=== PATIENT | male | born 1950 | race Caucasian/White ===

== ENCOUNTER 2019-09-19 07:28 | Outpatient (CLI) | payer MEDICARE, SELFPAY ==
[2019-09-19 08:02] LABS: Alanine Aminotransferase 25 U/L (4-50); Albumin Level 4.3 g/dL (3.5-5.1); Alkaline Phosphatase 57 U/L (38-126); Aspartate Amino Transferase 27 U/L (17-59); Bilirubin,Total 0.8 mg/dL (0.2-1.3); Blood Urea Nitrogen 13 mg/dL (9-20); Carbon Dioxide 29 mmol/L (22-30); Chloride 104 mmol/L (98-107); Cholesterol 123 mg/dL (0-200); Estimated Glomerular Filt Rate > 60; Glucose 137 mg/dL (75-110); HDL Direct 37 mg/dL; Potassium 4.2 mmol/L (3.4-5.0); Sodium 137 mmol/L (137-145); Triglycerides 115 mg/dL (<150)
[2019-09-19 08:03] LABS: Hemoglobin A1C 6.2 % (<5.7)
[2019-09-19 08:14] LABS: LDL Cholesterol Direct 65 mg/dL
== END 2019-09-19 07:29 | disposition home or self-care (01) ==
PROVIDERS: Visit Provider Physician Assistant
DX: E11.9 Type 2 diabetes mellitus without complications (principal); R03.0 Elevated blood-pressure reading, without diagnosis of hypertension
CPT/HCPCS: 36415; 80053; 80061; 83036

== ENCOUNTER 2019-10-02 10:05 | Outpatient (CLI) | payer MEDICARE, SELFPAY ==
--- NOTE | 2019-10-02 10:11 | EST_ITS ---
Patient Info Name: Kush Chaparro Age: 69 years : 1950 Gender: Male Ht: 64 in Wt: 205 lbs BSA: 2.09 m2 Exam Date: 10/02/2019 10:30 AM Exam Location: [facility] Stress Patient Status: Outpatient Admit Date: 10/02/2019 Staff Ordering Physician: Elizabeth Barboza PA-C Attending Provider: Elizabeth Barboza PA-C Exercise Technologist: Liz Lackey RDCS Exercise Physician: Andrea Peng DO Exam Type: CA stress test treadmill Study Info Indications R07.9 - Chest pain, unspecified A treadmill exercise stress test was performed. Summary 1. 1. Negative Peterson exercise stress test for ischemic ST changes by ECG criteria. However, he achieved only 81% MPHR for age group which reduces sensitivity of the test. 2. 2. Reduced functional capacity, achieving 7 METs of workload. 3. 3. Hypertensive response to exercise. 4. 4. Appropriate HR recovery at 1 minute post exercise. 5. 5. No imaging with stress testing. 6. 6. Patient informed of the above results. Protocol: Peterson Stress ECG Details Stage: REST Duration (min): 0 min : 46 sec Speed (mph): 0.0 Grade (%): 0 HR (bpm): 57 SBP (mmHg): 135 DBP (mmHg): 71 METS: --- Stage: REST Duration (min): 7 min : 12 sec Speed (mph): 0.0 Grade (%): 0 HR (bpm): 67 SBP (mmHg): 135 DBP (mmHg): 71 METS: --- Stage: STAGE 1 Duration (min): 1 min : 0 sec Speed (mph): 1.7 Grade (%): 10 HR (bpm): 85 SBP (mmHg): 135 DBP (mmHg): 71 METS: --- Stage: STAGE 1 Duration (min): 2 min : 0 sec Speed (mph): 1.7 Grade (%): 10 HR (bpm): 94 SBP (mmHg): 135 DBP (mmHg): 71 METS: --- Stage: STAGE 1 Duration (min): 3 min : 0 sec Speed (mph): 1.7 Grade (%): 10 HR (bpm): 102 SBP (mmHg): 171 DBP (mmHg): 74 METS: --- Stage: STAGE 2 Duration (min): 1 min : 0 sec Speed (mph): 2.5 Grade (%): 12 HR (bpm): 109 SBP (mmHg): 171 DBP (mmHg): 74 METS: --- Stage: STAGE 2 Duration (min): 2 min : 0 sec Speed (mph): 2.5 Grade (%): 12 HR (bpm): 121 SBP (mmHg): 205 DBP (mmHg): 92 METS: --- Stage: STAGE 2 Duration (min): 3 min : 0 sec Speed (mph): 2.5 Grade (%): 12 HR (bpm): 118 SBP (mmHg): 205 DBP (mmHg): 92 METS: --- Stage: STAGE 3 Duration (min): 0 min : 11 sec Speed (mph): 3.4 Grade (%): 14 HR (bpm): 120 SBP (mmHg): 205 DBP (mmHg): 92 METS: --- Stage: RECOVERY Duration (min): 0 min : 48 sec Speed (mph): 0.0 Grade (%): 0 HR (bpm): 106 SBP (mmHg): 214 DBP (mmHg): 88 METS: --- Stage: RECOVERY Duration (min): 1 min : 48 sec Speed (mph): 0.0 Grade (%): 0 HR (bpm): 82 SBP (mmHg): 214 DBP (mmHg): 88 METS: --- Stage: RECOVERY Duration (min): 2 min : 48 sec Speed (mph): 0.0 Grade (%): 0 HR (bpm): 78 SBP (mmHg): 214 DBP (mmHg): 88 METS: ---
== END 2019-10-02 10:06 | disposition home or self-care (01) ==
LOC: ANHCARD 10:07
PROVIDERS: Visit Provider Physician Assistant
DX: R07.89 Other chest pain (principal); E66.9 Obesity, unspecified; E11.9 Type 2 diabetes mellitus without complications
CPT/HCPCS: 93017

== ENCOUNTER 2020-01-30 10:09 | Outpatient (CLI) | payer MEDICARE, SELFPAY ==
[2020-01-30 10:48] LABS: Hemoglobin A1C 6.1 % (<5.7)
[2020-01-30 10:51] LABS: Alanine Aminotransferase 38 U/L (4-50); Albumin Level 4.5 g/dL (3.5-5.1); Alkaline Phosphatase 53 U/L (38-126); Anion Gap 6 mmol/L (8-16); Aspartate Amino Transferase 36 U/L (17-59); Bilirubin,Total 0.7 mg/dL (0.2-1.3); Blood Urea Nitrogen 16 mg/dL (9-20); Calcium 9.2 mg/dL (8.4-10.2); Carbon Dioxide 34 mmol/L (22-30); Chloride 100 mmol/L (98-107); Estimated Glomerular Filt Rate > 60; Glucose 170 mg/dL (75-110); Sodium 140 mmol/L (137-145)
== END 2020-01-30 10:10 | disposition home or self-care (01) ==
PROVIDERS: Visit Provider Physician Assistant
DX: E11.9 Type 2 diabetes mellitus without complications (principal); I10 Essential (primary) hypertension
CPT/HCPCS: 36415; 80053; 83036

== ENCOUNTER 2020-04-07 09:46 | Outpatient (CLI) | payer MEDICARE, SELFPAY ==
--- NOTE | ~2020-04-07 | US_ITS ---
US_ABDRLQ_US INDICATION: Fatty liver disease. PROCEDURE: Realtime right upper abdominal ultrasound. COMPARISON: No prior studies for comparison. FINDINGS: The pancreas is normal without focal mass or pancreatic ductal dilation. Liver echotexture is diffusely increased, consistent with fatty infiltration. Gallbladder is surgically absent. The gallbladder is normal without stones, gallbladder wall thickening or pericholecystic fluid. Comm on bile duct measures 5 mm. IMPRESSION: 1: Hepatic steatosis. Reviewed, dictated and finalized at location A. PROFIT JOB TITLES IMPRESSION: 1: Hepatic steatosis.
[2020-04-07 10:41] LABS: Basophils Absolute Auto 0.1 K/mm3 (0.0-0.1); Basophils Percent Auto 0.6 % (0.2-1.2); Eosinophils Absolute Auto 0.2 K/mm3 (0-0.3); Eosinophils Percent Auto 2.2 % (0-4.4); Hematocrit 46.7 % (42.0-52.0); Hemoglobin 16.1 g/dL (14.0-18.0); Immature Granulocyte Absolute 0.07 K/mm3 (0.00-0.031); Immature Granulocyte Percent A 0.7 % (0-0.5); Immature Platelet Fraction Pct 6.8 % (0.9-11.2); Lymphocytes Absolute Auto 2.16 K/mm3 (0.9-3.2); Lymphocytes Percent Auto 22.3 % (18.3-44.2); Mean Corpuscular HGB Conc 34.5 g/dl (32-36); Mean Corpuscular Hemoglobin 31.8 pg (26-34); Mean Corpuscular Volume 92.3 fl (80-100); Mean Platelet Volume 11.4 fl (7.4-10.4); Monocytes Absolute Auto 0.9 K/mm3 (0.1-0.6); Monocytes Percent Auto 8.8 % (2.6-8.5); Neutrophils Absolute Auto 6.3 K/mm3 (1.3-6.7); Neutrophils Percent Auto 65.4 % (45.5-73.1); Platelet Count Result 145 k/mm3 (150-375); Red Blood Count 5.06 M/mm3 (4.6-6.20); Red Cell Distribution Width 13.1 % (11.5-14.5); White Blood Count 9.7 K/mm3 (4.5-10.0)
[2020-04-07 10:54] LABS: Prothrombin Time 14.1 Seconds (11.1-14.7)
[2020-04-07 10:56] LABS: Alanine Aminotransferase 26 U/L (4-50); Albumin Level 4.2 g/dL (3.5-5.1); Alkaline Phosphatase 54 U/L (38-126); Anion Gap 7 mmol/L (8-16); Aspartate Amino Transferase 24 U/L (17-59); Bilirubin,Total 0.7 mg/dL (0.2-1.3); Blood Urea Nitrogen 20 mg/dL (9-20); Calcium 9.4 mg/dL (8.4-10.2); Carbon Dioxide 29 mmol/L (22-30); Chloride 103 mmol/L (98-107); Estimated Glomerular Filt Rate > 60; Glucose 144 mg/dL (75-110); Potassium 4.1 mmol/L (3.4-5.0); Sodium 139 mmol/L (137-145)
== END 2020-04-07 09:47 | disposition home or self-care (01) ==
LOC: ANHIMG 09:52
DX: K76.0 Fatty (change of) liver, not elsewhere classified (principal)
CPT/HCPCS: 36415; 76705; 80053; 85025; 85055; 85610

== ENCOUNTER → 2020-09-17 03:43 | Outpatient (CLI) | payer MEDICARE, SELFPAY ==
[2020-09-17 18:46] LABS: SARS-CoV-2 RNA PCR Negative
== END ==
PROVIDERS: PCP Family Medicine; Visit Provider Internal Medicine Gastroenterology
DX: Z01.812 Encounter for preprocedural laboratory examination (principal); Z20.822 Contact with and (suspected) exposure to COVID-19
CPT/HCPCS: C9803; U0003; U0005

== ENCOUNTER 2020-11-23 01:18 | Day surgery (SDC) | payer MEDICARE, SELFPAY ==
[2020-09-14 14:49] VITALS: BMI 34.0
[2020-11-15 15:43] VITALS: BMI 34.0
--- NOTE | 2020-11-22 12:03 | WPDANESEPPF ---
Anes - Initial Pre Proc Eval Procedure: Operation Date: 11/23/20 08:00 Proposed Procedures p Colonoscopy - Vin Broussard MD Date/Time: 11/22/20 12:03 Surgeon: Vin Broussard MD Pre Op Diagnosis: diarrhea Patient Data Age: 70 Gender: M Height: 1.63 m Weight: 90 kg Allergies Allergy/AdvReac Type Severity Reaction Status Date / Time adhesive Allergy Unknown blistering Verified 08/24/20 14:29 Home Medications Medication Instructions Recorded Confirmed Type aspirin 81 mg tablet,delayed 81 mg PO DAILY 02/05/19 11/23/20 History release cyclobenzaprine 5 mg tablet 5 mg PO DAILY PRN tablet 02/05/19 11/23/20 History fluticasone propionate 50 1 spray NASAL DAILY PRN 02/05/19 11/23/20 History mcg/actuation nasal spray,suspension sildenafil 100 mg tablet 100 mg PO DAILY PRN #6 tablet 03/18/19 11/15/20 Rx blood sugar diagnostic #100 ea 01/20/20 11/15/20 Rx lancets #100 ea 01/20/20 11/15/20 Rx Adult Probiotic 1 dose PO DAILY PRN 09/14/20 11/23/20 History alprazolam 0.25 mg PO DAILY PRN 09/14/20 11/23/20 History diphenhydramine HCl [Benadryl] 25 mg PO HS PRN 09/14/20 11/23/20 History modafinil 100 mg PO QAM PRN 09/14/20 11/15/20 History trazodone 25 mg PO .qhs 09/14/20 11/15/20 History hydrocodone 7.5 mg-ibuprofen 200 1 tablet PO Q12H PRN #30 tablet 09/15/20 11/23/20 Rx mg tablet losartan 50 mg PO DAILY 11/15/20 11/23/20 History Patient hx anesthesia problems: none Family hx anesthesia problems: none PMFSH Past Medical History Medical History (Updated 11/22/20 @ 12:05 by Barrett Terry DO) Anxiety BPH (benign prostatic hyperplasia) Chronic bilateral low back pain Chronic, continuous use of opioids Diabetes Elevated BP without diagnosis of hypertension Fatty liver History of hepatitis C Hyperlipidemia Hypertension COCO (obstructive sleep apnea) URI (upper respiratory infection) Surgical History Surgical History H/O sinus surgery H/O uvulectomy S/P cholecystectomy Family History Family History Sibling Diabetes mellitus Hypertension Mother Diabetes mellitus Hypertension Heart disease Mother Acute myocardial infarction, Onset Age: 80 Patient's mother is Diabetes mellitus Hypertension Family history of cardiovascular disease Father Family history of kidney disease, Onset Age: 75 Patient's father is Sibling Diabetes mellitus Hypertension Other Depression Family history of obesity Social History Social History Smoking status: Never smoker Second hand tobacco smoke exposure: No Alcohol intake: current Drinks per week: 1 Substance use: current Substance use type: marijuana Other substance usage details: OCC. Living arrangements: alone Gender identity (if verbalized by the patient): Male Spiritual care concerns: No Anes - Eval Final PreProcedure Day of Procedure 11/22/20 12:03 Patient weight: obese Heart: regular rate and rhythm Lungs: clear to auscultation and normal air movement Airway: Mallampati scale class II Neurological: alert and oriented Last oral intake: >/= 8 hours ASA classification: III Emergent: no Anesthetic plan: proceed Anesthesia type and monitoring: general GIVS and standard monitoring Informed Consent: The patient's anesthetic plan and its attendant risks and benefits were discussed with the patient/family/POA. Questions were solicited and answers provided to the satisfaction of the patient/family/POA.
[2020-11-23 06:39] VITALS: BP 157/79; PULSE 73; RESP 16; TEMP 36.1; O2SAT 98
[2020-11-23] MEDS: LACTATED RINGERS 1,000 ML 150 ML IV CONT (07:12)
--- NOTE | 2020-11-23 07:18 | WPDGICN ---
Assessment and Plan Assessment and plan (1) History of colon polyps: Code(s): Z86.010 - Personal history of colonic polyps Status: Acute Assessment and Plan: Patient has a prior history of colon polyps. Plan is for surveillance colonoscopy now and should be considered 5 year intervals in the future. (2) Diabetes: Code(s): E11.9 - Type 2 diabetes mellitus without complications Status: Acute Assessment and Plan: Patient complains of frequent loose stools in the morning potentially this could be related diabetic diarrhea. Fiber supplementation often helps this a brief trial will be recommended. (3) S/P cholecystectomy: Code(s): Z90.49 - Acquired absence of other specified parts of digestive tract Status: Acute Assessment and Plan: Patient has a prior history of cholecystectomy. Potentially this could contribute to loose stools. A brief trial of Questran can be considered if fiber supplementation fails to improve his diarrhea. (4) Family history of colonic polyps: Code(s): Z83.71 - Family history of colonic polyps Status: Acute GI Consult Note Consult date/time: 11/23/20 07:18 HPI: Kush Chaparro . is a 70 year old male Presents for screening colonoscopy. Patient has a prior history of colon polyps. Family history is also significant for colon polyps. Patient most recent colonoscopy was 2014. Over the last 1 year patient has noticed frequent stools in the morning. Occasional loose stools in the morning. For this reason the request follow-up colonoscopy at this time. Patient denies any blood in his stools. He denies abdominal pain. He has had no bleeding. Does report prior history cholecystectomy he has been treated for diabetes and has had hepatitis C treatment for cure. Review of Systems Review of Systems: All systems reviewed & are unremarkable except as noted in HPI and below PMFSH Past Medical History Medical History (Updated 11/23/20 @ 07:21 by Vin Broussard MD) Anxiety BPH (benign prostatic hyperplasia) Chronic bilateral low back pain Chronic, continuous use of opioids Diabetes Elevated BP without diagnosis of hypertension Fatty liver History of hepatitis C Hyperlipidemia Hypertension COCO (obstructive sleep apnea) URI (upper respiratory infection) Surgical History Surgical History (Updated 11/23/20 @ 07:21 by Vin Broussard MD) H/O sinus surgery H/O uvulectomy S/P cholecystectomy Family History Family History Sibling Diabetes mellitus Hypertension Mother Diabetes mellitus Hypertension Heart disease Mother Acute myocardial infarction, Onset Age: 80 Patient's mother is Diabetes mellitus Hypertension Family history of cardiovascular disease Father Family history of kidney disease, Onset Age: 75 Patient's father is Sibling Diabetes mellitus Hypertension Other Depression Family history of obesity Social History Social History Smoking status: Never smoker Second hand tobacco smoke exposure: No Alcohol intake: current Drinks per week: 1 Substance use: current Substance use type: marijuana Other substance usage details: OCC. Living arrangements: alone Gender identity (if verbalized by the patient): Male Spiritual care concerns: No Meds Home Medications and Allergies Home Medications Medication Instructions Recorded Confirmed Type aspirin 81 mg tablet,delayed 81 mg PO DAILY 02/05/19 11/23/20 History release cyclobenzaprine 5 mg tablet 5 mg PO DAILY PRN tablet 02/05/19 11/23/20 History fluticasone propionate 50 1 spray NASAL DAILY PRN 02/05/19 11/23/20 History mcg/actuation nasal spray,suspension sildenafil 100 mg tablet 100 mg PO DAILY PRN #6 tablet 03/18/19 11/15/20 Rx blood sugar diagnostic #100 ea 01/20/20 0
[2020-11-23 08:28] VITALS: BP 135/80; PULSE 65; RESP 24; O2SAT 97
[2020-11-23 08:38] VITALS: BP 135/81; PULSE 62; RESP 20; O2SAT 98
[2020-11-23 08:48] VITALS: BP 141/96; PULSE 56; RESP 17; O2SAT 98
== END 2020-11-23 09:03 | disposition home or self-care (01) ==
PROVIDERS: PCP Family Medicine; Visit Provider Internal Medicine Gastroenterology
PROC: 0DJD8ZZ Inspection of Lower Intestinal Tract, Via Natural or Artificial Opening Endoscopic (ICD-10-PCS; CPT 45378; principal; 2020-11-23 08:00)
DX: R19.7 Diarrhea, unspecified (principal); K64.8 Other hemorrhoids; K57.30 Diverticulosis of large intestine without perforation or abscess without bleeding; K63.5 Polyp of colon; D12.5 Benign neoplasm of sigmoid colon; E11.9 Type 2 diabetes mellitus without complications; Z90.49 Acquired absence of other specified parts of digestive tract; Z83.71 Family history of colonic polyps; F41.9 Anxiety disorder, unspecified; G47.33 Obstructive sleep apnea (adult) (pediatric); K76.0 Fatty (change of) liver, not elsewhere classified; E78.5 Hyperlipidemia, unspecified; Z86.19 Personal history of other infectious and parasitic diseases; F12.90 Cannabis use, unspecified, uncomplicated; Z79.82 Long term (current) use of aspirin; R19.5 Other fecal abnormalities; E66.9 Obesity, unspecified; Z68.34 Body mass index [BMI] 34.0-34.9, adult
CPT/HCPCS: 45385; 88305; J2001; J2704; J7120

== ENCOUNTER 2021-02-02 13:21 | Outpatient (CLI) | payer MEDICARE, SELFPAY ==
--- NOTE | ~2021-02-02 | CT_ITS ---
EXAMINATION: CT brain wo con EXAM DATE: 02/02/2021 13:50 INDICATION: R42 - Dizziness and giddiness. TECHNIQUE: Spiral CT of the head was performed without contrast. Axial, coronal and sagittal images were reviewed. The dose-length product (DLP) for this examination was 605.33 mGy-cm. The exposure w as tailored according to patient size, and iterative reconstruction (ASIR) was used as additional dos e reduction technique. There is no prior study for comparison. FINDINGS: There is no acute intraparenchymal hemorrhage. No evidence of intraparenchymal brain mass lesion. No evidence of acute infarction. There is no mass effect or midline shift. The ventricles are normal in size. There are no extra-axial collections. There are no acute calvarial fractures. T he orbits are unremarkable. Soft tissue is unremarkable. The visualized sinuses and mastoid air zac ls are well aerated. IMPRESSION: 1. Unremarkable head CT examination. Reviewed, dictated and finalized at location A.
== END 2021-02-02 13:22 | disposition home or self-care (01) ==
LOC: ANHIMG 13:27
PROVIDERS: PCP Family Medicine; Visit Provider Physician Assistant
DX: R42 Dizziness and giddiness (principal)
CPT/HCPCS: 70450

== ENCOUNTER 2021-02-14 12:35 | Outpatient (CLI) | payer MEDICARE, SELFPAY ==
--- NOTE | ~2021-02-14 | US_ITS ---
EXAMINATION: US carotid duplex BI DATE: 02/14/2021 13:08 INDICATION: Dizziness and giddiness. TECHNIQUE: Grayscale, color Doppler, and pulsed Doppler images of the cervical carotid arteries were obtained. The degree of vessel stenosis is placed in one of the following categories: normal, <50%, 5 0-69%, >=70% but less than near-occlusion, near-occlusion, or total occlusion. Note that percent sten osis relative to normal distal artery lumen diameter is indirectly measured from velocity measurement s as described by Tiago, et al. Radiology 2003; 229:340-346. COMPARISON: None. FINDINGS: RIGHT: The right common carotid artery (CCA) peak systolic velocity (PSV) is 147 cm/s. The right internal ca rotid artery (ICA) PSV is 121 cm/s. The right ICA end-diastolic velocity (EDV) is 37 cm/s. The right ICA/CCA PSV ratio is 0.8. Grayscale and color Doppler images yield an estimate of <50% diameter reduc tion from plaque in the ICA. There is antegrade flow in the right vertebral artery. LEFT: The left CCA PSV is 133 cm/s. The left ICA PSV is 97 cm/s. The left ICA EDV is 25 cm/s. The left ICA/ CCA PSV ratio is 0.7. Grayscale and color Doppler images yield an estimate of <50% diameter reduction from plaque in the ICA. There is antegrade flow in the left vertebral artery. IMPRESSION: 1. <50% stenosis in the right internal carotid artery. 2. <50% stenosis in the left internal carotid artery. Reviewed, dictated and finalized at location A. OILER
== END 2021-02-14 12:36 | disposition home or self-care (01) ==
LOC: ANHIMG 12:39
PROVIDERS: PCP Family Medicine; Visit Provider Physician Assistant
DX: R42 Dizziness and giddiness (principal); I65.23 Occlusion and stenosis of bilateral carotid arteries
CPT/HCPCS: 93880

== ENCOUNTER 2021-03-01 15:14 | Outpatient (CLI) | payer MEDICARE, SELFPAY ==
[2021-03-01 15:53] LABS: Alanine Aminotransferase 34 U/L (4-50); Albumin Level 4.5 g/dL (3.5-5.1); Alkaline Phosphatase 56 U/L (38-126); Anion Gap 10 mmol/L (8-16); Aspartate Amino Transferase 32 U/L (17-59); Bilirubin,Total 0.7 mg/dL (0.2-1.3); Blood Urea Nitrogen 14 mg/dL (9-20); Calcium 9.2 mg/dL (8.4-10.2); Carbon Dioxide 25 mmol/L (22-30); Chloride 104 mmol/L (98-107); Estimated Glomerular Filt Rate > 60; Glucose 157 mg/dL (65-110); Potassium 4.6 mmol/L (3.4-5.0); Sodium 139 mmol/L (137-145)
[2021-03-01 16:42] LABS: Hemoglobin A1C 6.8 % (<5.7)
== END 2021-03-01 15:15 | disposition home or self-care (01) ==
LOC: ANHLAB 15:19
PROVIDERS: PCP Family Medicine; Visit Provider Family Medicine
DX: E11.9 Type 2 diabetes mellitus without complications (principal)
CPT/HCPCS: 36415; 80053; 83036

== ENCOUNTER 2021-03-15 08:03 | Outpatient (CLI) | payer MEDICARE, SELFPAY ==
--- NOTE | ~2021-03-15 | US_ITS ---
EXAMINATION: US abdomen limited DATE: 03/15/2021 08:48 INDICATION: Nonalcoholic fatty liver disease. TECHNIQUE: Multiple grayscale and Doppler ultrasound images of the abdomen were obtained. COMPARISON: Ultrasound 04/07/2020, CT abdomen and pelvis 03/17/2015 FINDINGS: The visualized portions of the head of the pancreas are normal. There is diffuse hepatic st eatosis. No liver surface nodularity. There is normal flow in main portal vein. The gallbladder is ab sent. The common duct is normal and measures 4 mm. IMPRESSION: 1. Diffuse hepatic steatosis. Reviewed, dictated and finalized at location A. OAT ENGINEER
[2021-03-15 10:22] LABS: Alanine Aminotransferase 34 U/L (4-50); Albumin Level 4.7 g/dL (3.5-5.1); Alkaline Phosphatase 64 U/L (38-126); Anion Gap 9 mmol/L (8-16); Aspartate Amino Transferase 25 U/L (17-59); Bilirubin,Total 0.8 mg/dL (0.2-1.3); Blood Urea Nitrogen 25 mg/dL (9-20); Calcium 9.6 mg/dL (8.4-10.2); Carbon Dioxide 30 mmol/L (22-30); Chloride 97 mmol/L (98-107); Estimated Glomerular Filt Rate > 60; Glucose 261 mg/dL (65-110); Potassium 4.6 mmol/L (3.4-5.0); Sodium 136 mmol/L (137-145)
[2021-03-15 10:24] LABS: INR 1.1; Prothrombin Time 13.8 Seconds (11.1-14.7)
[2021-03-15 10:32] LABS: Basophils Absolute Auto 0.1 K/mm3 (0.0-0.1); Basophils Percent Auto 1.1 % (0.2-1.2); Eosinophils Absolute Auto 0.2 K/mm3 (0-0.3); Eosinophils Percent Auto 1.9 % (0-4.4); Hematocrit 47.6 % (42.0-52.0); Hemoglobin 16.5 g/dL (14.0-18.0); Immature Granulocyte Absolute 0.29 K/mm3 (0.00-0.031); Immature Granulocyte Percent A 2.5 % (0-0.5); Immature Platelet Fraction Pct 7.8 % (0.9-11.2); Lymphocytes Absolute Auto 2.02 K/mm3 (0.9-3.2); Lymphocytes Percent Auto 17.3 % (18.3-44.2); Mean Corpuscular HGB Conc 34.7 g/dl (32-36); Mean Corpuscular Hemoglobin 32.4 pg (26-34); Mean Corpuscular Volume 93.5 fl (80-100); Mean Platelet Volume 11.4 fl (7.4-10.4); Monocytes Percent Auto 8.4 % (2.6-8.5); Neutrophils Percent Auto 68.8 % (45.5-73.1); Platelet Count Result 138 k/mm3 (150-375); Red Blood Count 5.09 M/mm3 (4.6-6.20); Red Cell Distribution Width 12.5 % (11.5-14.5); White Blood Count 11.7 K/mm3 (4.5-10.0)
== END 2021-03-15 08:04 | disposition home or self-care (01) ==
PROVIDERS: PCP Family Medicine
DX: K76.0 Fatty (change of) liver, not elsewhere classified (principal)
CPT/HCPCS: 36415; 76705; 80053; 85025; 85055; 85610

== ENCOUNTER 2021-06-11 12:46 | Outpatient (CLI) | payer MEDICARE, SELFPAY ==
[2021-06-11 13:39] LABS: Alanine Aminotransferase 34 U/L (4-50); Albumin Level 4.4 g/dL (3.5-5.1); Alkaline Phosphatase 58 U/L (38-126); Anion Gap 8 mmol/L (8-16); Aspartate Amino Transferase 30 U/L (17-59); Bilirubin,Total 0.8 mg/dL (0.2-1.3); Blood Urea Nitrogen 15 mg/dL (9-20); Calcium 8.9 mg/dL (8.4-10.2); Carbon Dioxide 27 mmol/L (22-30); Chloride 103 mmol/L (98-107); Estimated Glomerular Filt Rate > 60; Glucose 183 mg/dL (65-110); Potassium 4.2 mmol/L (3.4-5.0); Sodium 138 mmol/L (137-145)
[2021-06-11 14:45] LABS: Folic Acid 6.8 ng/mL (2.76->20); Vitamin B12 > 1000.0 pg/mL (239-931)
[2021-06-11 15:43] LABS: Hemoglobin A1C 6.8 % (<5.7)
== END 2021-06-11 12:47 | disposition home or self-care (01) ==
PROVIDERS: PCP Family Medicine; Visit Provider Physician Assistant
DX: E11.9 Type 2 diabetes mellitus without complications (principal); I10 Essential (primary) hypertension; K76.0 Fatty (change of) liver, not elsewhere classified; R20.0 Anesthesia of skin; F41.9 Anxiety disorder, unspecified
CPT/HCPCS: 36415; 80053; 82607; 82746; 83036; 84443

== ENCOUNTER 2021-09-13 10:04 | Outpatient (CLI) | payer MEDICARE, SELFPAY ==
[2021-09-13 10:39] LABS: Basophils Absolute Auto 0.1 K/mm3 (0.0-0.1); Eosinophils Absolute Auto 0.2 K/mm3 (0-0.3); Eosinophils Percent Auto 3.1 % (0-4.4); Hematocrit 46.9 % (42.0-52.0); Hemoglobin 16.2 g/dL (14.0-18.0); Immature Granulocyte Absolute 0.05 K/mm3 (0.00-0.031); Immature Granulocyte Percent A 0.7 % (0-0.5); Immature Platelet Fraction Pct 6.2 % (0.9-11.2); Lymphocytes Absolute Auto 1.85 K/mm3 (0.9-3.2); Lymphocytes Percent Auto 25.2 % (18.3-44.2); Mean Corpuscular HGB Conc 34.5 g/dl (32-36); Mean Corpuscular Hemoglobin 31.5 pg (26-34); Mean Corpuscular Volume 91.2 fl (80-100); Mean Platelet Volume 11.2 fl (7.4-10.4); Monocytes Absolute Auto 0.7 K/mm3 (0.1-0.6); Monocytes Percent Auto 9.5 % (2.6-8.5); Neutrophils Absolute Auto 4.4 K/mm3 (1.3-6.7); Neutrophils Percent Auto 60.5 % (45.5-73.1); Platelet Count Result 130 k/mm3 (150-375); Red Blood Count 5.14 M/mm3 (4.6-6.20); White Blood Count 7.3 K/mm3 (4.5-10.0)
[2021-09-13 10:52] LABS: Alanine Aminotransferase 37 U/L (6-50); Albumin Level 4.5 g/dL (3.5-5.1); Alkaline Phosphatase 55 U/L (38-126); Anion Gap 7 mmol/L (8-16); Aspartate Amino Transferase 29 U/L (17-59); Blood Urea Nitrogen 13 mg/dL (9-20); Calcium 9.2 mg/dL (8.4-10.2); Carbon Dioxide 26 mmol/L (22-30); Chloride 106 mmol/L (98-107); Estimated Glomerular Filt Rate > 60; Glucose 157 mg/dL (65-110); Potassium 4.1 mmol/L (3.4-5.0); Sodium 139 mmol/L (137-145)
[2021-09-13 10:53] LABS: Hemoglobin A1C 6.8 % (<5.7)
[2021-09-13 12:18] LABS: Folic Acid 7.9 ng/mL (2.76->20); Vitamin B12 > 1000.0 pg/mL (239-931)
== END 2021-09-13 10:05 | disposition home or self-care (01) ==
PROVIDERS: PCP Family Medicine; Visit Provider Physician Assistant
DX: K76.0 Fatty (change of) liver, not elsewhere classified (principal); I10 Essential (primary) hypertension; E11.9 Type 2 diabetes mellitus without complications; R20.0 Anesthesia of skin; R20.2 Paresthesia of skin
CPT/HCPCS: 36415; 80053; 82607; 82746; 83036; 84443; 85025; 85055

== ENCOUNTER 2022-01-25 09:56 | Outpatient (CLI) | payer MEDICARE, SELFPAY ==
[2022-01-25 10:20] LABS: Alanine Aminotransferase 46 U/L (6-50); Albumin Level 4.3 g/dL (3.5-5.1); Alkaline Phosphatase 51 U/L (38-126); Anion Gap 11 mmol/L (8-16); Aspartate Amino Transferase 34 U/L (17-59); Bilirubin,Total 0.7 mg/dL (0.2-1.3); Blood Urea Nitrogen 12 mg/dL (9-20); Calcium 8.5 mg/dL (8.4-10.2); Carbon Dioxide 25 mmol/L (22-30); Chloride 104 mmol/L (98-107); Estimated Glomerular Filt Rate 60; Glucose 140 mg/dL (65-110); Potassium 4.1 mmol/L (3.4-5.0); Sodium 140 mmol/L (137-145)
[2022-01-25 10:26] LABS: Hemoglobin A1C 7.1 % (<5.7)
== END 2022-01-25 09:57 | disposition home or self-care (01) ==
LOC: ANHLAB 09:58
PROVIDERS: PCP Family Medicine; Visit Provider Family Medicine
DX: E11.9 Type 2 diabetes mellitus without complications (principal)
CPT/HCPCS: 36415; 80053; 83036

== ENCOUNTER 2022-02-16 09:13 | Outpatient (CLI) | payer MEDICARE, SELFPAY ==
[2022-02-16 10:32] LABS: Cholesterol 138 mg/dL (0-200); HDL Direct 40 mg/dL; Triglycerides 233 mg/dL (<150)
[2022-02-16 10:42] LABS: LDL Cholesterol Direct 56 mg/dL
== END 2022-02-16 09:14 | disposition home or self-care (01) ==
LOC: ANHLAB 09:14
PROVIDERS: PCP Family Medicine; Visit Provider Internal Medicine Cardiovascular Disease
DX: I25.10 Atherosclerotic heart disease of native coronary artery without angina pectoris (principal)
CPT/HCPCS: 36415; 80061

== ENCOUNTER 2022-05-03 09:05 | Outpatient (CLI) | payer MEDICARE, SELFPAY ==
--- NOTE | ~2022-05-03 | US_ITS ---
EXAMINATION: US abdomen limited DATE: 05/03/2022 12:27 INDICATION: NONALCOHOLIC FATTY LIVER DISEASE TECHNIQUE: Multiple grayscale and Doppler ultrasound images of limited portions of the abdomen were o btained. COMPARISON: None available. FINDINGS: The visualized portions of the pancreas are normal. The liver is enlarged with increased ec hogenicity and normal echotexture. No surface nodularity. Normal hepatopetal flow in the main portal vein. Status post cholecystectomy. The common bile duct measures 4 mm. IMPRESSION: Hepatomegaly. Echogenic liver, most commonly due to steatosis but also can be seen with hepatitis and fibrosis. Reviewed, dictated and finalized at location K. CLEANING MACHINE TENDER IMPRESSION: Hepatomegaly. Echogenic liver, most commonly due to steatosis but also can be s een with hepatitis and fibrosis.
[2022-05-03 11:52] LABS: Appearance Urine Clear (Clear); Bilirubin Urine Negative (Negative); Blood Urine Trace-lysed (Negative); Color Urine Yellow (Yellow); Glucose Urine UA 1+ mg/dL (Negative); Ketones Urine Negative (Negative); Leukocyte Esterase Ur Negative LEU/UL (NEGATIVE); Nitrate Urine Negative (Negative); Protein Urine Trace mg/dL (Negative); Specific Grav Ur >= 1.030 (1.001-1.035); Urobilinogen Urine 0.2 mg/dL (<2.0); pH Urine 5.5 (5.0-9.0)
[2022-05-03 12:00] LABS: Hematocrit 42.9 % (42.0-52.0); Hemoglobin 15.1 g/dL (14.0-18.0); Immature Platelet Fraction Pct 6.8 % (0.9-11.2); Mean Corpuscular HGB Conc 35.2 g/dl (32-36); Mean Corpuscular Hemoglobin 32.3 pg (26-34); Mean Corpuscular Volume 91.7 fl (80-100); Mean Platelet Volume 11.7 fl (7.4-10.4); Platelet Count Result 138 k/mm3 (150-375); Red Blood Count 4.68 M/mm3 (4.6-6.20); Red Cell Distribution Width 13.1 % (11.5-14.5); White Blood Count 7.3 K/mm3 (4.5-10.0)
[2022-05-03 12:22] LABS: Calcium Oxalate Crystals Urine Present /hpf; Mucus Urine Rare /lpf; Squamous Epithelial Cell Urine Rare /hpf (Few); WBC Urine 0-3 /hpf (0-3)
[2022-05-03 13:08] LABS: Alanine Aminotransferase 34 U/L (6-50); Albumin Level 4.4 g/dL (3.5-5.1); Alkaline Phosphatase 52 U/L (38-126); Anion Gap 6 mmol/L (8-16); Aspartate Amino Transferase 35 U/L (17-59); Bilirubin,Total 0.7 mg/dL (0.2-1.3); Blood Urea Nitrogen 15 mg/dL (9-20); Calcium 8.6 mg/dL (8.4-10.2); Carbon Dioxide 26 mmol/L (22-30); Chloride 104 mmol/L (98-107); Cholesterol 78 mg/dL (0-200); Estimated Glomerular Filt Rate 60; Glucose 199 mg/dL (65-110); HDL Direct 43 mg/dL; Potassium 3.9 mmol/L (3.4-5.0); Sodium 136 mmol/L (137-145); Triglycerides 130 mg/dL (<150)
[2022-05-03 13:10] LABS: Add Urine Microscopic? YES
[2022-05-03 13:24] LABS: Microalbumin Urine Random 59.6 mg/L (0-16.7)
[2022-05-03 13:27] LABS: Hemoglobin A1C 6.9 % (<5.7)
[2022-05-03 13:45] LABS: LDL Cholesterol Direct < 30 mg/dL
[2022-05-03 14:39] LABS: Creatinine Urine 225.4 mg/dL; MALB Creatinine Ratio 26.4 mg/g (0-30)
== END 2022-05-03 09:06 | disposition home or self-care (01) ==
PROVIDERS: PCP Family Medicine; Referring Provider Family Medicine
DX: Z00.00 Encounter for general adult medical examination without abnormal findings (principal); K76.0 Fatty (change of) liver, not elsewhere classified; E11.9 Type 2 diabetes mellitus without complications; E78.5 Hyperlipidemia, unspecified; I10 Essential (primary) hypertension; I25.10 Atherosclerotic heart disease of native coronary artery without angina pectoris; R35.1 Nocturia; J06.9 Acute upper respiratory infection, unspecified; F41.9 Anxiety disorder, unspecified; N40.0 Benign prostatic hyperplasia without lower urinary tract symptoms
CPT/HCPCS: 36415; 76705; 80053; 80061; 81001; 82043; 83036; 84153; 84443; 85027; 85055

== ENCOUNTER 2022-05-24 15:36 | Outpatient (CLI) | payer MEDICARE, SELFPAY ==
--- NOTE | ~2022-05-24 | XR_ITS ---
XR hip LT min 2V 05/24/2022 16:03 Indication: Left hip and groin pain for 2 years Procedure: 2 views left hip Comparison: No prior studies for comparison. Findings: There is osteoarthritis of the left hip with loose body just lateral to the superior margin of the joint space. No fracture or traumatic malalignment. Sacral foramen are symmetric. Impression: 1: Mild osteoarthritis of the left hip with associated loose body lateral to the joint space. Reviewed, dictated and finalized at location L. ASTRUCTURE TECH Impression: 1: Mild osteoarthritis of the left hip with associated loose body lateral to th e joint space.
== END 2022-05-24 15:37 | disposition home or self-care (01) ==
PROVIDERS: PCP Family Medicine; Visit Provider Family Medicine
DX: M16.12 Unilateral primary osteoarthritis, left hip (principal)
CPT/HCPCS: 73502

== ENCOUNTER 2022-07-20 15:19 | Outpatient (CLI) | payer MEDICARE, SELFPAY ==
[2022-07-20 16:24] LABS: Appearance Urine Clear (Clear); Bacteria Urine None Seen /hpf; Bilirubin Urine Negative (Negative); Blood Urine Negative (Negative); Color Urine Yellow (Yellow); Glucose Urine UA 3+ mg/dL (Negative); Ketones Urine Negative (Negative); Leukocyte Esterase Ur Negative LEU/UL (NEGATIVE); Nitrate Urine Negative (Negative); Non Pathogenic Casts 0-2; Protein Urine Trace mg/dL (Negative); RBC Urine 0-2 /hpf (0-2); Specific Grav Ur 1.027 (1.001-1.035); Squamous Epithelial Cell Urine None seen /hpf (Few); WBC Urine 0-5 /hpf (0-3); pH Urine 5.5 (5.0-9.0)
[2022-07-20 16:31] LABS: Add Urine Microscopic? YES
[2022-07-20 16:52] LABS: Basophils Absolute Auto 0.1 K/mm3 (0.0-0.1); Basophils Percent Auto 1.3 % (0.2-1.2); Eosinophils Absolute Auto 0.3 K/mm3 (0-0.3); Eosinophils Percent Auto 4.7 % (0-4.4); Hematocrit 41.8 % (42.0-52.0); Hemoglobin 14.8 g/dL (14.0-18.0); Immature Granulocyte Absolute 0.03 K/mm3 (0.00-0.031); Immature Granulocyte Percent A 0.5 % (0-0.5); Lymphocytes Absolute Auto 2.07 K/mm3 (0.9-3.2); Lymphocytes Percent Auto 32.3 % (18.3-44.2); Mean Corpuscular HGB Conc 35.4 g/dl (32-36); Mean Corpuscular Hemoglobin 32.1 pg (26-34); Mean Corpuscular Volume 90.7 fl (80-100); Mean Platelet Volume 12.1 fl (7.4-10.4); Monocytes Absolute Auto 0.6 K/mm3 (0.1-0.6); Monocytes Percent Auto 9.5 % (2.6-8.5); Neutrophils Absolute Auto 3.3 K/mm3 (1.3-6.7); Neutrophils Percent Auto 51.7 % (45.5-73.1); Platelet Count Result 109 k/mm3 (150-375); Red Blood Count 4.61 M/mm3 (4.6-6.20); Red Cell Distribution Width 12.7 % (11.5-14.5); White Blood Count 6.4 K/mm3 (4.5-10.0)
[2022-07-20 17:24] LABS: Alanine Aminotransferase 41 U/L (6-50); Albumin Level 4.3 g/dL (3.5-5.1); Alkaline Phosphatase 48 U/L (38-126); Anion Gap 9 mmol/L (8-16); Aspartate Amino Transferase 33 U/L (17-59); Blood Urea Nitrogen 14 mg/dL (9-20); Calcium 9.2 mg/dL (8.4-10.2); Carbon Dioxide 25 mmol/L (22-30); Chloride 101 mmol/L (98-107); Estimated Glomerular Filt Rate > 60; Glucose 240 mg/dL (65-110); Sodium 135 mmol/L (137-145)
[2022-07-20 18:26] LABS: Folic Acid 7.4 ng/mL (2.76->20)
[2022-07-20 21:36] LABS: Iron 131 ug/dL (49-181)
[2022-07-20 21:46] LABS: Percent Iron Saturation 43 % (20-50)
== END 2022-07-20 15:20 | disposition home or self-care (01) ==
PROVIDERS: PCP Family Medicine; Visit Provider Physician Assistant
DX: J06.9 Acute upper respiratory infection, unspecified (principal); R53.83 Other fatigue; N32.81 Overactive bladder; K76.0 Fatty (change of) liver, not elsewhere classified; N40.0 Benign prostatic hyperplasia without lower urinary tract symptoms; E55.9 Vitamin D deficiency, unspecified; E53.8 Deficiency of other specified B group vitamins; F41.9 Anxiety disorder, unspecified; E11.9 Type 2 diabetes mellitus without complications; R10.32 Left lower quadrant pain
CPT/HCPCS: 36415; 80053; 81001; 82306; 82607; 82728; 82746; 83540; 83550; 84443; 85025; 87086

== ENCOUNTER 2022-08-24 10:33 | Outpatient (CLI) | payer MEDICARE, SELFPAY ==
[2022-08-24 11:08] LABS: Basophils Absolute Auto 0.1 K/mm3 (0.0-0.1); Basophils Percent Auto 0.9 % (0.2-1.2); Eosinophils Absolute Auto 0.3 K/mm3 (0-0.3); Hematocrit 44.6 % (42.0-52.0); Hemoglobin 15.5 g/dL (14.0-18.0); Immature Granulocyte Absolute 0.03 K/mm3 (0.00-0.031); Immature Granulocyte Percent A 0.4 % (0-0.5); Immature Platelet Fraction Pct 5.1 % (0.9-11.2); Lymphocytes Absolute Auto 1.72 K/mm3 (0.9-3.2); Lymphocytes Percent Auto 24.6 % (18.3-44.2); Mean Corpuscular HGB Conc 34.8 g/dl (32-36); Mean Corpuscular Hemoglobin 31.3 pg (26-34); Mean Corpuscular Volume 90.1 fl (80-100); Mean Platelet Volume 10.6 fl (7.4-10.4); Monocytes Absolute Auto 0.7 K/mm3 (0.1-0.6); Monocytes Percent Auto 9.3 % (2.6-8.5); Neutrophils Absolute Auto 4.2 K/mm3 (1.3-6.7); Neutrophils Percent Auto 60.8 % (45.5-73.1); Platelet Count Result 134 k/mm3 (150-375); Red Blood Count 4.95 M/mm3 (4.6-6.20); Red Cell Distribution Width 12.6 % (11.5-14.5)
[2022-08-24 11:20] LABS: Cholesterol 133 mg/dL (0-200); HDL Direct 38 mg/dL; Triglycerides 249 mg/dL (<150)
[2022-08-24 11:25] LABS: Alanine Aminotransferase 67 U/L (6-50); Albumin Level 4.5 g/dL (3.5-5.1); Alkaline Phosphatase 60 U/L (38-126); Anion Gap 9 mmol/L (8-16); Aspartate Amino Transferase 77 U/L (17-59); Bilirubin,Total 0.8 mg/dL (0.2-1.3); Blood Urea Nitrogen 13 mg/dL (9-20); Calcium 8.9 mg/dL (8.4-10.2); Carbon Dioxide 25 mmol/L (22-30); Chloride 102 mmol/L (98-107); Estimated Glomerular Filt Rate > 60; Glucose 259 mg/dL (65-110); Potassium 4.4 mmol/L (3.4-5.0); Sodium 136 mmol/L (137-145)
[2022-08-24 11:31] LABS: LDL Cholesterol Direct 50 mg/dL
[2022-08-24 12:42] LABS: Hemoglobin A1C 8.8 % (<5.7)
== END 2022-08-24 10:34 | disposition home or self-care (01) ==
PROVIDERS: Physician Assistant; PCP Family Medicine; Referring Provider Internal Medicine Cardiovascular Disease; Visit Provider Family Medicine
DX: I25.10 Atherosclerotic heart disease of native coronary artery without angina pectoris (principal); E11.9 Type 2 diabetes mellitus without complications; D69.6 Thrombocytopenia, unspecified; R79.89 Other specified abnormal findings of blood chemistry; J06.9 Acute upper respiratory infection, unspecified
CPT/HCPCS: 36415; 80053; 80061; 82728; 83036; 85025; 85055

== ENCOUNTER 2022-12-11 13:02 | Outpatient (CLI) | payer MEDICARE, SELFPAY ==
[2022-12-11 14:05] LABS: Alanine Aminotransferase 45 U/L (6-50); Alkaline Phosphatase 51 U/L (38-126); Anion Gap 10 mmol/L (8-16); Aspartate Amino Transferase 37 U/L (17-59); Bilirubin,Total 0.8 mg/dL (0.2-1.3); Blood Urea Nitrogen 9 mg/dL (9-20); Calcium 9.1 mg/dL (8.4-10.2); Carbon Dioxide 28 mmol/L (22-30); Chloride 101 mmol/L (98-107); Estimated Glomerular Filt Rate > 60; Glucose 194 mg/dL (65-110); Potassium 3.9 mmol/L (3.4-5.0); Sodium 139 mmol/L (137-145)
[2022-12-11 14:17] LABS: Hemoglobin A1C 7.1 % (<5.7)
== END 2022-12-11 13:03 | disposition home or self-care (01) ==
PROVIDERS: PCP Family Medicine; Visit Provider Family Medicine
DX: E11.9 Type 2 diabetes mellitus without complications (principal)
CPT/HCPCS: 36415; 80053; 83036

== ENCOUNTER → 2023-01-29 09:08 | Outpatient (CLI) | payer MEDICARE, SELFPAY ==
--- NOTE | ~2023-01-29 | US_ITS ---
EXAMINATION: US abdomen limited DATE: 01/29/2023 09:29 INDICATION: Cirrhosis TECHNIQUE: Multiple grayscale and Doppler ultrasound images of the abdomen were obtained. COMPARISON: 05/03/2022 FINDINGS: The pancreatic head and body are normal in appearance. The pancreatic tail is not visualized. Liver has normal contour with no evident liver surface nodularity. There is increased parenchymal echogenic ity and coarsened echotexture consistent with diffuse hepatic steatosis. No liver lesion identified. No intrahepatic biliary duct dilation suspected. Portal venous flow was seen in the hepatopetal, nor mal direction and has normal Doppler waveform. Gallbladder is not visualized and reportedly surgical ly absent. Common bile duct measures up to 7 mm which is within normal limits post cholecystectomy. D iffuse mild cortical atrophy at the right kidney. No hydronephrosis. IMPRESSION: 1. Diffuse hepatic steatosis. No definitive liver surface nodularity to confirm reported cirrhosis. 2. Common bile duct measures 7 mm within normal limits post cholecystectomy. No intrahepatic ductal o r ductal dilation. Reviewed, dictated and finalized at location A. IMPRESSION: 1. Diffuse hepatic steatosis. No definitive liver surface nodularity to confirm reported cirrhosis. 2. Common bile duct measures 7 mm within normal limits post cholecystectomy. No intrahepatic ductal or ductal dilation.
== END ==
PROVIDERS: PCP Family Medicine
DX: K74.69 Other cirrhosis of liver (principal); K76.0 Fatty (change of) liver, not elsewhere classified
CPT/HCPCS: 76705

== ENCOUNTER 2023-01-29 09:27 | Outpatient (CLI) | payer MEDICARE, SELFPAY ==
[2023-01-29 13:08] LABS: Basophils Absolute Auto 0.1 K/mm3 (0.0-0.1); Basophils Percent Auto 1.1 % (0.2-1.2); Eosinophils Absolute Auto 0.3 K/mm3 (0-0.3); Eosinophils Percent Auto 4.1 % (0-4.4); Hematocrit 43.7 % (42.0-52.0); Hemoglobin 14.7 g/dL (14.0-18.0); Immature Granulocyte Absolute 0.03 K/mm3 (0.00-0.031); Immature Granulocyte Percent A 0.5 % (0-0.5); Lymphocytes Absolute Auto 2.07 K/mm3 (0.9-3.2); Lymphocytes Percent Auto 33.8 % (18.3-44.2); Mean Corpuscular HGB Conc 33.6 g/dl (32-36); Mean Corpuscular Hemoglobin 31.3 pg (26-34); Mean Platelet Volume 12.6 fl (7.4-10.4); Monocytes Absolute Auto 0.6 K/mm3 (0.1-0.6); Monocytes Percent Auto 10.1 % (2.6-8.5); Neutrophils Absolute Auto 3.1 K/mm3 (1.3-6.7); Neutrophils Percent Auto 50.4 % (45.5-73.1); Platelet Count Result 118 k/mm3 (150-375); White Blood Count 6.1 K/mm3 (4.5-10.0)
[2023-01-29 13:15] LABS: Prothrombin Time 13.1 Seconds (11.1-14.7)
[2023-01-29 13:20] LABS: Alanine Aminotransferase 57 U/L (6-50); Albumin Level 4.3 g/dL (3.5-5.1); Alkaline Phosphatase 48 U/L (38-126); Anion Gap 7 mmol/L (8-16); Aspartate Amino Transferase 55 U/L (17-59); Bilirubin,Total 0.9 mg/dL (0.2-1.3); Blood Urea Nitrogen 9 mg/dL (9-20); Calcium 9.1 mg/dL (8.4-10.2); Carbon Dioxide 26 mmol/L (22-30); Chloride 104 mmol/L (98-107); Estimated Glomerular Filt Rate > 60; Glucose 165 mg/dL (65-110); Potassium 3.9 mmol/L (3.4-5.0); Sodium 137 mmol/L (137-145)
[2023-02-03 17:48] LABS: Alpha Fetoprotein Tumor Marker 1.7 ng/mL (<6.1)
== END 2023-01-29 09:28 | disposition home or self-care (01) ==
LOC: ANHGOSHLAB 09:31
PROVIDERS: PCP Family Medicine
DX: K74.69 Other cirrhosis of liver (principal)
CPT/HCPCS: 36415; 80053; 82105; 85025; 85610

== ENCOUNTER 2023-02-18 20:00 | Outpatient (CLI) | payer MEDICARE, SELFPAY ==
--- NOTE | 2023-03-12 09:32 | WPDSLEEPSTUD ---
Sleep Study Date of Study: 02/18/23 Ordering Provider: Andrea Peng DO Interpreting Physician: Emili Neil DO Sleep Study Type: Polysomnogram Height: 1.65 m Weight: 91.626 kg Body Mass Index: 33.6 Neck Circumference (inches): 16.75 Inlet: 14 Reason for Sleep Study Baseline polysomnogram for Inspire consideration Sleep History The patient is a 72-year-old male that had a sleep study ordered for consideration of inspire. The patient denies awakening from sleep short of breath. He denies awakening at night with heartburn, belching or cough. He denies snoring. He frequently has trouble sleeping when he has a cold. He denies waking up gasping for air throughout the night. He occasionally sweats excessively at night. He denies having heart palpitations or irregular heartbeats during the night. He frequently falls asleep during the day but never while driving. He denies cataplexy. He denies having trouble at school or work due to sleepiness. He occasionally feels unable to move while waking up or falling asleep. He rarely experiences vivid dreamlike scenes upon awakening or falling asleep. He occasionally feels afraid of going to sleep. He denies having nightmares. He occasionally remembers his dreams. He rarely has thoughts racing through his mind. He occasionally feels sad, depressed and anxious. He denies noticing parts of his body jerk. He denies kicking during the night. He denies having crawling and aching feelings in his legs and denies having leg pain during the night. He occasionally grinds his teeth during sleep but rarely awakens with morning jaw pain. He is constantly bothered by pain during the day but rarely awakened by pain during the night. He constantly wakes up feeling stiff in the morning. He rarely wakes up with sore or achy muscles. He frequently wakes up with pain in the neck, spine and other joints. He goes to bed past midnight on both weekdays and weekends. He is able to fall asleep within 30 minutes after eating. He wakes up 2-4 times throughout the night and will watch TV if he naps more than twice per day. It can take him over an hour to fall back asleep. He wakes up between 5-10 a.m. on both weekdays and weekends. He typically gets 3-6 hours of sleep per night. He will stay in bed for 1 hour after waking up in the morning. He currently lives alone. He denies consuming any caffeinated beverages within 2 hours of bedtime. He denies engaging in physical exercise before bedtime. He will read watch television before falling asleep. He will take naps in the afternoon or the evening and they are occasionally refreshing. He consumes 1 caffeinated soda per day. He used to smoke cigarettes. He currently uses marijuana. [facility] Past Medical History Medical History Anxiety Arthritis of left hip BPH (benign prostatic hyperplasia) Chronic bilateral low back pain (~07/2022) Chronic, continuous use of opioids Diabetes Elevated BP without diagnosis of hypertension Fatty liver History of hepatitis C Hyperlipidemia Hypertension COCO (obstructive sleep apnea) URI (upper respiratory infection) Surgical History Surgical History H/O sinus surgery H/O uvulectomy S/P cholecystectomy Family History Family History Sibling Diabetes mellitus Hypertension Mother Diabetes mellitus Hypertension Heart disease Mother Acute myocardial infarction, Onset Age: 80 Patient's mother is Diabetes mellitus Hypertension Family history of cardiovascular disease Father Family history of kidney disease, Onset Age: 75 Patient's father is Sibling Diabetes mellitus Hypertension Other Depression Family history of obesity Social History Social History (Reviewed 03/12/23 @ 09:32 by Clari
[2023-03-12 09:46] VITALS: BMI 33.6
== END 2023-02-19 07:04 | disposition home or self-care (01) ==
LOC: ANHCSM 02-19 06:59
PROVIDERS: PCP Family Medicine; Visit Provider Internal Medicine Cardiovascular Disease
DX: G47.33 Obstructive sleep apnea (adult) (pediatric) (principal)
CPT/HCPCS: 95810

== ENCOUNTER 2023-03-29 12:43 | Outpatient (CLI) | payer MEDICARE, SELFPAY ==
[2023-03-29 14:00] LABS: Hemoglobin 15.8 g/dL (14.0-18.0); Mean Corpuscular HGB Conc 34.3 g/dl (32-36); Mean Corpuscular Hemoglobin 30.7 pg (26-34); Mean Corpuscular Volume 89.5 fl (80-100); Mean Platelet Volume 11.4 fl (7.4-10.4); Platelet Count Result 144 k/mm3 (150-375); Red Blood Count 5.14 M/mm3 (4.6-6.20); Red Cell Distribution Width 12.7 % (11.5-14.5)
[2023-03-29 14:14] LABS: Appearance Urine Clear (Clear); Bacteria Urine None Seen /hpf; Bilirubin Urine Negative (Negative); Blood Urine Negative (Negative); Color Urine Dark Yellow (Yellow); Glucose Urine UA 1+ mg/dL (Negative); Ketones Urine Trace mg/dL (Negative); Leukocyte Esterase Ur Negative LEU/UL (NEGATIVE); Nitrate Urine Negative (Negative); Protein Urine 1+ mg/dL (Negative); RBC Urine 0-2 /hpf (0-2); Specific Grav Ur 1.026 (1.001-1.035); Squamous Epithelial Cell Urine None seen /hpf (Few); Urobilinogen Urine 0.2 mg/dL (<2.0); WBC Urine 0-5 /hpf (0-3)
[2023-03-29 14:14] LABS: Alanine Aminotransferase 58 U/L (6-50); Albumin Level 4.6 g/dL (3.5-5.1); Alkaline Phosphatase 60 U/L (38-126); Anion Gap 10 mmol/L (8-16); Aspartate Amino Transferase 44 U/L (17-59); Bilirubin,Total 1.1 mg/dL (0.2-1.3); Blood Urea Nitrogen 14 mg/dL (9-20); Calcium 9.9 mg/dL (8.4-10.2); Carbon Dioxide 23 mmol/L (22-30); Chloride 104 mmol/L (98-107); Cholesterol 134 mg/dL (0-200); Estimated Glomerular Filt Rate > 60; Glucose 183 mg/dL (65-110); HDL Direct 36 mg/dL; Sodium 137 mmol/L (137-145); Triglycerides 228 mg/dL (<150)
[2023-03-29 14:16] LABS: Add Urine Microscopic? YES
[2023-03-29 14:25] LABS: LDL Cholesterol Direct 53 mg/dL
[2023-03-29 14:45] LABS: Prostate Specific Antigen 5.5 ng/mL (< OR = 4.0)
[2023-03-29 15:56] LABS: Creatinine Urine 311.3 mg/dL
[2023-03-29 16:01] LABS: MALB Creatinine Ratio 23.3 mg/g (0-30); Microalbumin Urine Random 72.6 mg/L (0-16.7)
== END 2023-03-29 12:44 | disposition home or self-care (01) ==
PROVIDERS: PCP Family Medicine; Visit Provider Family Medicine
DX: E11.9 Type 2 diabetes mellitus without complications (principal); E78.5 Hyperlipidemia, unspecified; I10 Essential (primary) hypertension; I25.10 Atherosclerotic heart disease of native coronary artery without angina pectoris; J06.9 Acute upper respiratory infection, unspecified; R35.1 Nocturia; N40.0 Benign prostatic hyperplasia without lower urinary tract symptoms; F41.9 Anxiety disorder, unspecified
CPT/HCPCS: 36415; 80053; 80061; 81001; 82043; 83036; 84153; 84443; 85027

== ENCOUNTER 2023-04-04 16:35 | Outpatient (CLI) | payer MEDICARE, SELFPAY ==
--- NOTE | ~2023-04-04 | XR_ITS ---
EXAMINATION: XR lumbar spine 2-3V DATE: 04/04/2023 17:00 INDICATION: Pain in right hip. TECHNIQUE: 3 views of lumbar spine were obtained. COMPARISON: Lumbar spine radiographs 08/04/2011 FINDINGS: There is 6 degrees levocurvature of lumbar spine. There is mild chronic anterior wedging of L1 vertebral body. There is mildly decreased disc height at L1-L2 and L2-L3, moderately decreased di sc height at L3-L4, and mildly decreased disc height at L4-L5. There is multilevel moderate to severe facet joint osteoarthritis. Surgical clips in the right upper quadrant are likely from cholecystecto my. IMPRESSION: 1. Moderate lumbar spondylosis. Reviewed, dictated and finalized at location E. N RESOURCES PARTNER
--- NOTE | ~2023-04-04 | XR_ITS ---
EXAMINATION: XR hip RT min 2V DATE: 04/04/2023 17:00 INDICATION: Right hip pain. TECHNIQUE: 2 views of right hip were obtained. COMPARISON: None. FINDINGS: Bone alignment is normal. No fracture. There is mild right hip osteoarthritis. IMPRESSION: 1. Mild right hip osteoarthritis. Reviewed, dictated and finalized at location E. CULTURAL PRODUCE COMMISSION AGENT
== END 2023-04-04 16:36 | disposition home or self-care (01) ==
LOC: ANHIMG 16:37
PROVIDERS: PCP Family Medicine; Visit Provider Family Medicine
DX: M16.11 Unilateral primary osteoarthritis, right hip (principal); M43.06 Spondylolysis, lumbar region
CPT/HCPCS: 72100; 73502

== ENCOUNTER 2023-08-07 11:24 | Outpatient (CLI) | payer MEDICARE, SELFPAY ==
[2023-08-07 12:57] LABS: Hemoglobin A1C 6.5 % (<5.7)
[2023-08-07 13:00] LABS: Alanine Aminotransferase 37 U/L (6-50); Albumin Level 4.5 g/dL (3.5-5.1); Alkaline Phosphatase 54 U/L (38-126); Anion Gap 7 mmol/L (4-12); Aspartate Amino Transferase 37 U/L (17-59); Bilirubin,Total 0.8 mg/dL (0.2-1.3); Blood Urea Nitrogen 11 mg/dL (9-20); Calcium 9.3 mg/dL (8.4-10.2); Carbon Dioxide 24 mmol/L (22-30); Chloride 108 mmol/L (98-107); Estimated Glomerular Filt Rate > 60; Glucose 153 mg/dL (65-110); Potassium 3.7 mmol/L (3.4-5.0); Sodium 139 mmol/L (137-145)
== END 2023-08-07 11:25 | disposition home or self-care (01) ==
PROVIDERS: PCP Family Medicine; Visit Provider Family Medicine
DX: E11.9 Type 2 diabetes mellitus without complications (principal)
CPT/HCPCS: 36415; 80053; 83036

== ENCOUNTER 2023-09-05 14:29 | Outpatient (CLI) | payer MEDICARE, SELFPAY ==
--- NOTE | ~2023-09-05 | XR_ITS ---
XR finger 2nd RT min 2V Ordering provider: Júnior Daley MD History: . M79.646 - Pain in 2NG FINGER, ARTHRITIS . Comparison: None. FINDINGS: BONES: No acute fracture or dislocation. JOINT SPACES: Early osteoarthritic changes in the distal interphalangeal joints is not excluded. SOFT TISSUES: Normal. IMPRESSION: No acute osseous abnormality. Reviewed, dictated and finalized at location A.
--- NOTE | ~2023-09-05 | XR_ITS ---
AP view of the pelvis and AP and lateral views of the bilateral hips Clinical history: Pain Findings: No acute fracture or dislocation is seen. Osseous alignment is anatomic. Bilateral hip and SI joint spaces are preserved. Soft tissues are unremarkable. Impression: No significant abnormality is seen. Reviewed, dictated and finalized at location . Impression: No significant abnormality is seen.
== END 2023-09-05 14:30 | disposition home or self-care (01) ==
PROVIDERS: PCP Family Medicine; Visit Provider Family Medicine
DX: M25.551 Pain in right hip (principal); M25.552 Pain in left hip; M79.644 Pain in right finger(s)
CPT/HCPCS: 73140; 73521

== ENCOUNTER 2023-09-24 10:08 | Outpatient (CLI) | payer MEDICARE, SELFPAY ==
[2023-09-24 11:03] LABS: Basophils Absolute Auto 0.1 K/mm3 (0.0-0.1); Basophils Percent Auto 0.9 % (0.2-1.2); Eosinophils Absolute Auto 0.3 K/mm3 (0-0.3); Eosinophils Percent Auto 3.8 % (0-4.4); Hematocrit 43.5 % (42.0-52.0); Hemoglobin 15.2 g/dL (14.0-18.0); Immature Granulocyte Absolute 0.05 K/mm3 (0.00-0.031); Immature Granulocyte Percent A 0.7 % (0-0.5); Lymphocytes Absolute Auto 2.13 K/mm3 (0.9-3.2); Lymphocytes Percent Auto 28.2 % (18.3-44.2); Mean Corpuscular HGB Conc 34.9 g/dl (32-36); Mean Corpuscular Hemoglobin 31.8 pg (26-34); Mean Platelet Volume 10.4 fl (7.4-10.4); Monocytes Absolute Auto 0.6 K/mm3 (0.1-0.6); Monocytes Percent Auto 8.4 % (2.6-8.5); Neutrophils Absolute Auto 4.4 K/mm3 (1.3-6.7); Platelet Count Result 144 k/mm3 (150-375); Red Blood Count 4.78 M/mm3 (4.6-6.20); Red Cell Distribution Width 12.7 % (11.5-14.5); White Blood Count 7.5 K/mm3 (4.5-10.0)
[2023-09-24 11:13] LABS: Prothrombin Time 13.3 Seconds (11.1-14.7)
[2023-09-24 11:16] LABS: Alanine Aminotransferase 39 U/L (6-50); Albumin Level 4.6 g/dL (3.5-5.1); Alkaline Phosphatase 55 U/L (38-126); Anion Gap 8 mmol/L (4-12); Aspartate Amino Transferase 40 U/L (17-59); Bilirubin,Total 0.8 mg/dL (0.2-1.3); Blood Urea Nitrogen 14 mg/dL (9-20); Calcium 9.5 mg/dL (8.4-10.2); Carbon Dioxide 26 mmol/L (22-30); Chloride 106 mmol/L (98-107); Estimated Glomerular Filt Rate > 60; Glucose 148 mg/dL (65-110); Potassium 4.1 mmol/L (3.4-5.0); Sodium 140 mmol/L (137-145)
[2023-09-26 11:44] LABS: Alpha Fetoprotein Tumor Marker 1.9 ng/mL (<6.1)
== END 2023-09-24 10:09 | disposition home or self-care (01) ==
PROVIDERS: PCP Family Medicine
DX: K74.69 Other cirrhosis of liver (principal)
CPT/HCPCS: 36415; 80053; 82105; 85025; 85610

== ENCOUNTER 2023-11-19 12:14 | Outpatient (CLI) | payer MEDICARE, SELFPAY ==
[2023-11-19 13:37] LABS: Basophils Absolute Auto 0.1 K/mm3 (0.0-0.1); Basophils Percent Auto 0.7 % (0.2-1.2); Eosinophils Absolute Auto 0.3 K/mm3 (0-0.3); Eosinophils Percent Auto 4.1 % (0-4.4); Hematocrit 43.6 % (42.0-52.0); Hemoglobin 15.4 g/dL (14.0-18.0); Immature Granulocyte Absolute 0.02 K/mm3 (0.00-0.031); Immature Granulocyte Percent A 0.3 % (0-0.5); Immature Platelet Fraction Pct 4.9 % (0.9-11.2); Lymphocytes Absolute Auto 1.76 K/mm3 (0.9-3.2); Mean Corpuscular HGB Conc 35.3 g/dl (32-36); Mean Corpuscular Volume 90.5 fl (80-100); Mean Platelet Volume 11.3 fl (7.4-10.4); Monocytes Absolute Auto 0.6 K/mm3 (0.1-0.6); Monocytes Percent Auto 8.7 % (2.6-8.5); Neutrophils Absolute Auto 4.3 K/mm3 (1.3-6.7); Neutrophils Percent Auto 61.2 % (45.5-73.1); Platelet Count Result 139 k/mm3 (150-375); Red Blood Count 4.82 M/mm3 (4.6-6.20); Red Cell Distribution Width 12.6 % (11.5-14.5)
[2023-11-19 13:48] LABS: Alanine Aminotransferase 29 U/L (6-50); Albumin Level 4.4 g/dL (3.5-5.1); Alkaline Phosphatase 55 U/L (38-126); Anion Gap 13 mmol/L (4-12); Aspartate Amino Transferase 29 U/L (17-59); Blood Urea Nitrogen 13 mg/dL (9-20); Calcium 9.5 mg/dL (8.4-10.2); Carbon Dioxide 24 mmol/L (22-30); Chloride 103 mmol/L (98-107); Estimated Glomerular Filt Rate > 60; Glucose 138 mg/dL (65-110); Potassium 3.8 mmol/L (3.4-5.0); Sodium 140 mmol/L (137-145)
[2023-11-19 15:31] LABS: Hemoglobin A1C 6.5 % (<5.7)
== END 2023-11-19 12:15 | disposition home or self-care (01) ==
PROVIDERS: Internal Medicine Cardiovascular Disease; PCP Family Medicine; Visit Provider Family Medicine
DX: E11.9 Type 2 diabetes mellitus without complications (principal); I25.119 Atherosclerotic heart disease of native coronary artery with unspecified angina pectoris; Z01.810 Encounter for preprocedural cardiovascular examination
CPT/HCPCS: 36415; 80053; 83036; 85025; 85055

== ENCOUNTER 2024-03-24 15:30 | Outpatient (CLI) | payer MEDICARE, SELFPAY ==
[2024-03-24 15:59] LABS: Hematocrit 42.6 % (42.0-52.0); Hemoglobin 15.2 g/dL (14.0-18.0); Immature Platelet Fraction Pct 4.6 % (0.9-11.2); Mean Corpuscular HGB Conc 35.7 g/dl (32-36); Mean Corpuscular Hemoglobin 32.3 pg (26-34); Mean Corpuscular Volume 90.4 fl (80-100); Mean Platelet Volume 10.2 fl (7.4-10.4); Platelet Count Result 135 k/mm3 (150-375); Red Blood Count 4.71 M/mm3 (4.6-6.20); White Blood Count 6.5 K/mm3 (4.5-10.0)
[2024-03-24 16:06] LABS: Hemoglobin A1C 6.6 % (<5.7)
[2024-03-24 16:12] LABS: Add Urine Microscopic? YES; Appearance Urine Clear (Clear); Bacteria Urine None Seen /hpf; Bilirubin Urine 1+ (Negative); Blood Urine Negative (Negative); Color Urine Dark Yellow (Yellow); Glucose Urine UA Negative (Negative); Hyaline Casts Urine Present /lpf; Ketones Urine Trace mg/dL (Negative); Leukocyte Esterase Ur Negative LEU/UL (Negative); Mucus Urine Present /lpf; Need Manual Microscopic Reviewed; Nitrate Urine Negative (Negative); Protein Urine 1+ mg/dL (Negative); RBC Urine 0-2 /hpf (0-2); Specific Grav Ur 1.026 (1.001-1.035); Squamous Epithelial Cell Urine None Seen /hpf (Few); WBC Urine 0-5 /hpf (0-3)
[2024-03-24 16:16] LABS: Alanine Aminotransferase 23 U/L (6-50); Albumin Level 4.6 g/dL (3.5-5.1); Alkaline Phosphatase 59 U/L (38-126); Anion Gap 6 mmol/L (4-12); Aspartate Amino Transferase 29 U/L (17-59); Bilirubin,Total 1.4 mg/dL (0.2-1.3); Blood Urea Nitrogen 13 mg/dL (9-20); Calcium 9.5 mg/dL (8.4-10.2); Carbon Dioxide 28 mmol/L (22-30); Chloride 104 mmol/L (98-107); Cholesterol 121 mg/dL (0-200); Estimated Glomerular Filt Rate > 60; Glucose 144 mg/dL (65-110); HDL Direct 38 mg/dL; Potassium 4.3 mmol/L (3.4-5.0); Sodium 138 mmol/L (137-145); Triglycerides 187 mg/dL (<150)
[2024-03-24 16:22] LABS: LDL Cholesterol Direct 47 mg/dL
[2024-03-24 16:49] LABS: Microalbumin Urine Random 53.1 mg/L (0-16.7)
[2024-03-24 16:57] LABS: Prostate Specific Antigen 5.8 ng/mL (< OR = 4.0)
[2024-03-24 17:06] LABS: MALB Creatinine Ratio 9.2 mg/g (0-30)
== END 2024-03-24 15:31 | disposition home or self-care (01) ==
LOC: ANHLAB 15:39
PROVIDERS: PCP Family Medicine; Visit Provider Family Medicine
DX: R10.32 Left lower quadrant pain (principal); R97.20 Elevated prostate specific antigen [PSA]; F41.9 Anxiety disorder, unspecified; I25.10 Atherosclerotic heart disease of native coronary artery without angina pectoris; I10 Essential (primary) hypertension; E11.9 Type 2 diabetes mellitus without complications; E78.5 Hyperlipidemia, unspecified; R35.1 Nocturia; Z12.5 Encounter for screening for malignant neoplasm of prostate
CPT/HCPCS: 36415; 80053; 80061; 81001; 82043; 83036; 84153; 84443; 85027; 85055

== ENCOUNTER 2024-05-06 16:40 | Outpatient (CLI) | payer MEDICARE, SELFPAY ==
--- NOTE | ~2024-05-06 | XR_ITS ---
CHEST RADIOGRAPH, PA AND LATERAL CLINICAL HISTORY: Z77.090 - Contact with and (suspected) exposure to asbestos . COMPARISON: 03/03/2019 TECHNIQUE: PA and lateral views of the chest. FINDINGS The cardiomediastinal silhouette is unremarkable. The lungs are clear. Visualized osseous structures and soft tissues are unremarkable. IMPRESSION: No focal infiltrate or effusion. Reviewed, dictated and finalized at location A. ERN KEEPER
--- OUTSIDE RECORDS SUMMARY | 2024-05-06 16:45 | XMS_ITS | Patient Health Summary ---
Author Organization [facility] Address [address] [place] [place] [address] Care Team Providers Care Family Practice Md Name Role Phone Júnior Daley MD Primary Care Provider [phone] Note from [facility],non-owned Affiliates and Associated Physician Practices is amultiple site organization consisting of ambulatory clinics and hospital sitesin [place], [place], [place] and [place]. This disclosure is being madepursuant to the Care Everywhere program and may not contain all information available regarding this patient. Last updated 17.[facility] Allergies * Adhesive Sensitivity(Other,Rash) -Medium Criticality * Latex(Rash) -Medium Criticality Medications * Be aware that medications may not be up to date on this document. Alwaysverify current medications with the patient. * ALPRAZolam (XANAX) 0.5 MG tablet(Started 05/23/2016) Take 1 (one) tablet by mouth 2 times daily as needed for Anxiety * HYDROcodone-ibuprofen (IBUDONE) 7.5-200 MG(Started 12/25/2017) every 6 hours as needed * Flaxseed, Linseed, (FLAX SEEDS PO) Take by mouth once daily * Ejfsmkazaxq-Iwiuhmqk-Kljhuqoa (REFRESH OPTIVE JUHI-3 OP) by Ophthalmic route 3 times daily as needed * aspirin (ASPIRIN) 81 MG tablet Take 1 (one) tablet by mouth once daily * losartan (COZAAR) 50 MG tablet(Started 02/03/2021) Take 1 (one) tablet by mouth once daily * modafinil (PROVIGIL) 200 MG tablet Take 1 (one) tablet by mouth once daily as needed * cyclobenzaprine (FLEXERIL) 5 MG tablet Take 1 (one) tablet by mouth once daily as needed * gabapentin (NEURONTIN) 300 MG capsule(Started 08/26/2021) Take 1 (one) capsule by mouth 2 times daily * metFORMIN ER 24hr (GLUCOPHAGE XR) 500 MG tablet(Started 08/02/2021) Take 2 (two) tablets by mouth 2 times daily * Page-3 1000 MG Take 2,000 mg by mouth once daily * amLODIPine (Norvasc) 10 MG tablet Take 1 (one) tablet by mouth once daily * diphenhydrAMINE (Benadryl Allergy) 25 MG capsule Take 1 (one) capsule by mouth nightly as needed for Itching * fluticasone propionate (Flonase) 50 MCG/ACT nasal spray(Started 05/15/2022) [place] 2 (two) sprays into each nostril as needed * pravastatin (Pravachol) 10 MG tablet(Started 01/11/2023) Take 1 (one) tablet by mouth once daily * Flaxseed Oil (Linseed Oil) Take by mouth once daily * colestipol (Colestid) 1 GM tablet(Started 10/02/2023) Take 1 (one) tablet by mouth 2 times daily 5 refills by 10/01/2024 Active Problems Problem Noted Date Diagnosed Date Combined forms of age-related cataract of both e yes 11/04/2019 Cirrhosis 02/04/2019 Obesity 02/04/2019 Trichiasis of eyelid of both eyes 01/07/2019 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 01/07/2019 Dry eye syndrome of both lacrimal glands 019 Nonalcoholic fatty liver disease 01/14/2018 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 02/28/2016 Chronic viral hepatitis C 04/28/2014 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F) 10/02/2023 2:57 PM CD T Respiratory Rate 20 08/08/2022 2:56 PM CDT Oxygen Saturation 99% 10/02/2023 2:57 PM CDT Inhaled Oxygen Concentration - - Weight 93.3 kg (205 lb 9.6 oz) 10/02/2023 2:57 P M CDT Height 165.1 cm (5' 5 ) 10/02/2023 2:57 PM CDT Body Mass Index 34.21 10/02/2023 2:57 PM CDT Procedures * AFP (EXTERNAL RESULT ENTRY)(Performed 01/29/2023) * CBC W DIFF (EXTERNAL RESULT ENTRY)(Performed 01/29/2023) * PT INR (EXTERNAL RESULT ENTRY)(Performed 01/29/2023) * COMP MET PANEL (EXTERNAL RESULT ENTRY)(Performed 01/29/2023) * CT CARDIAC ANGIO W BRENDA EVAL(Performed 10/10/2021) Performed for Chest pain, unspecified type * CREATININE - POCT INTERFACED(Performed 10/10/2021) * LA LIVER ELASTOGRAPHY(Performed 09/22/2021) Performed for Nonalcoholic fatty liver disease * TSH (EXTERNAL RESULT ENTRY)(Performed 09/13/2021) * HEMOGLOBIN A1C (EXTERNAL RESULT ENTRY)(Performed 09/13/2021) * COMP MET PANEL (EXTERNAL RESULT ENTRY)(Performed 09/13/2021) * CBC W DIFF (EXTERNAL RESULT ENTRY)(Performed 09/13/2021) * COMP MET PANEL (EXTERNAL RESULT ENTRY)(Performed 03/15/2021) * HEMATOLOGY PROF (EXTERNAL RESULT ENTRY)(Performed 03/15/2021) * CBC W DIFF (EXTERNAL RESULT ENTRY)(Performed 04/07/2020) * PT INR (EXTERNAL RESULT ENTRY)(Performed 04/07/2020) * COMP MET PANEL (EXTERNAL RESULT ENTRY)(Performed 04/07/2020) * CBC W DIFF (EXTERNAL RESULT ENTRY)(Performed 01/27/2019) * PT INR (EXTERNAL RESULT ENTRY)(Performed 01/27/2019) * COMP MET PANEL (EXTERNAL RESULT ENTRY)(Performed 01/27/2019) * CBC W DIFF (EXTERNAL RESULT ENTRY)(Performed 07/12/2018) * COMP MET PANEL (EXTERNAL RESULT ENTRY)(Performed 07/12/2018) * CT ABDOMEN MULTI PHASE W CONT(Performed 01/14/2018) Performed for Chronic hepatitis C without hepatic coma (HCC) * CREATININE BLOOD - POCT (IP) [facility](Performed 01/14/2018) Performed for Chronic hepatitis C without hepatic coma (HCC) * CBC W AUTO DIFFERENTIAL(Performed 10/29/2012) * FERRITIN(Performed 10/29/2012) * PT-INR [facility](Performed 10/29/2012) * COMPREHENSIVE METABOLIC PANEL(Performed 10/29/2012) * IRON BLOOD(Performed 10/29/2012) * HEPATITIS C RNA QUANTITATIVE(Performed 10/09/2012) * HEPATITIS C RNA QUANTITATIVE(Performed 10/09/2012) * PT-INR [facility](Performed 10/09/2012) * COMPREHENSIVE METABOLIC PANEL(Performed 10/09/2012) * CBC W AUTO DIFFERENTIAL(Performed 10/09/2012) * PATHOLOGY REPORTS - HPF HISTORICAL(Performed 11/16/2011) * HEPATITIS C RNA QUANTITATIVE PCR(Performed 10/20/2011) * PT-INR [facility](Performed 10/20/2011) * ALPHA FETOPROTEIN + AFP-L3(Performed 10/20/2011) * HEPATITIS C QUANT RT PCR GRAPHICAL(Performed 10/20/2011) * COMPREHENSIVE METABOLIC PANEL(Performed 10/20/2011) * ALPHA FETOPROTEIN + AFP-L3(Performed 10/20/2011) * HEPATITIS C RNA QUANTITATIVE PCR(Performed 10/20/2011) * PT-INR [facility](Performed 10/20/2011) * COMPREHENSIVE METABOLIC PANEL(Performed 10/20/2011) * PATHOLOGY REPORTS - HPF HISTORICAL(Performed 10/19/2010) * COMPREHENSIVE METABOLIC PANEL(Performed 04/02/1998) * PT-INR [facility](Performed 04/02/1998) * CBC W AUTO DIFFERENTIAL(Performed 04/02/1998) * HCG BETA BLOOD TUMOR MARKER(Performed 04/02/1998) * TESTOSTERONE FREE (DIRECT)+TOTAL(Performed 04/02/1998) * HEMOGLOBIN A1C(Performed 04/02/1998) Results * (ABNORMAL) CBC W DIFF (EXTERNAL RESULT ENTRY) (01/29/2023 9:50 AM CDT) Only the most recent of5 resultswithin the time period is included. Pathologist [facility] [place] WBC (EXTERNAL RESULT) 6.1 10^3/ul OTHER LAB Hemoglobin (EXTERNAL RESULT) 14.7 g/dl OTHER LAB Hematocrit (EXTERNAL RESULT) 43.7 % OTHER LAB Platelets (EXTERNAL RESULT) 118(A) 10^3/ul OTHER LAB Neutrophil Absolute (EXTERNAL RESULT) 3.1 10^3/ul OTHER LAB Blood BLOOD SPECIMEN / Unknown 01/29/2023 9:50 AM CDT Historical Provider LAB - HEMATOLOGY ORDERABLES Performing Organization Address [facility] de Phone Number OTHER LAB * PT INR (EXTERNAL RESULT ENTRY) (01/29/2023 9:50 AM CDT) Only the most recent of3 resultswithin the time period is included. Pathologist [facility] [place] PT (EXTERNAL) 13.1 sec OTHER LAB INR (EXTERNAL RESULT) 1.0 OTHER LAB Blood BLOOD SPECIMEN / Unknown 01/29/2023 9:50 AM CDT Historical Provider LAB - CHEMISTRY O RDERASARI Performing Organization Address [facility] de Phone Number OTHER LAB * AFP (EXTERNAL RESULT ENTRY) (01/29/2023 9:50 AM CDT) Pathologist [facility] [place] Alpha-Fetoprote in (EXTERNAL RESULT) 1.7 OTHER LAB Blood BLOOD SPECIMEN / Unknown 01/29/2023 9:50 AM CDT Historical Provider LAB - CHEMISTRY O RDERASARI OTHER LAB * (ABNORMAL) COMP MET PANEL (EXTERNAL RESULT ENTRY) (01/29/2023 9:50 AM CDT) Only the most recent of6 resultswithin the time period is included. Glucose (EXTERNAL) 165(A) mg/dL OTHER LAB Sodium (EXTERNAL RESULT) 137 mmol/L OTHER LAB Potassium (EXTERNAL RESULT) 3.9 mmol/L OTHER LAB Chloride (EXTERNAL RESULT) 104 mmol/L OTHER LAB CO2 (EXTERNAL) 26 mmol/L OTHER LAB Calcium (EXTERNAL RESULT) 9.1 mg/dL OTHER LAB Anion Gap (EXTERNAL RESULT) 7(A) mmol/L OTHER LAB BUN (EXTERNAL RESULT) 9 mg/dL OTHER LAB Creatinine (EXTERNAL RESULT) 1.00 mg/dl OTHER LAB Alkaline Phosphatase (EXTERNAL RESULT) 48 U/L OTHER LAB ALT (EXTERNAL RESULT) 57(A) U/L OTHER LAB AST (EXTERNAL RESULT) 55 U/L OTHER LAB Protein Total (EXTERNAL RESULT) 8.0 gm/dL OTHER LAB Albumin (EXTERNAL RESULT) 4.3 gm/dL OTHER LAB Bilirubin Total (EXTERNAL RESULT) 0.9 mg/dL OTHER LAB eGFR MDRD (EXTERNAL RESULT) >60 mL/min/1.7 3m2 OTHER LAB eGFR (EXTERNAL) OTHER LAB Blood BLOOD SPECIMEN / Unknown 01/29/2023 9:50 AM CDT Historical Provider MD LAB - CHEMISTRY O RDERABLES OTHER LAB * CT CARDIAC ANGIO W BRENDA EVAL (10/10/2021 9:51 AM CDT) Anatomical Region Laterality Modality Chest Computed Tomogra phy 10/10/2021 2:28 PM CDT Impressions 10/10/2021 4:33 PM CDT Impression: Calcium score of 258 Agatston Units. Ramus intermedius branch is present. Coronary artery disease most significant in the left coronary artery system. A mixed plaque is present in the distal left main coronary artery extends into the origin of the LAD with approximately 60 percent narrowing. Multiple mixed plaques are present throughout the LAD with up to 70 percent stenosis noted in the proximal to mid LAD. The distal LAD is patent. Multiple calcified plaques throughout the circumflex and right coronary artery without significant narrowing. Study also reviewed by: Dr. Sheppard and Dr. Magallon. This report was electronically signed by Lew CARTWRIGHT M.D. ??on 10/10/2021 4:33 PM . Narrative 10/10/2021 4:33 PM CDT Computed Tomographic Angiography (CTA) 47632 Clinical History:Chest pain CTA Technique: Following positioning and IV placement the patient underwent a Dual source CT exam during a 6-second breath hold following administration of 80 cc of Isoview-370 contrast agent at a rate 5 ml/sec and 40 ml saline flush. Image Interpretation: The calcium score is measured as 258 Agatston Units. The left ventricular ejection fraction was calculated at 64 %. The major pulmonary arteries and branches are normal. The aortic valve is tri-leaflet and the aortic root is normal in dimension and orientation. Left main coronary artery divides into LAD , circumflex and ramus intermedius branches. ??There is significant coronary artery disease of the left coronary artery system with a mixed plaque involving the distal left main coronary artery just proximal to branching point. This plaque extends into the LAD and results in approximately 60 percent narrowing of the LAD at its origin. Multiple mixed plaques are noted throughout the course of the left anterior descending coronary artery with up to 70 percent stenosis noted in the proximal to mid LAD. The distal LAD is patent. A partially calcified plaque is noted at the origin of the ramus intermedius branch with mild narrowing. Multiple plaques are present throughout the circumflex artery with up to mild narrowing. The right coronary artery is dominant and gives rise to PDA. A few small calcified plaques are present throughout the right coronary artery without significant narrowing. The heart size within normal limits. There is no pericardial effusion. The visualized parts of the lungs are clear without focal consolidations. Procedure Note Joselin Cartwright MD - 10/10/2021 Computed Tomographic Angiography (CTA) 81845 Clinical History:Chest pain CTA Technique: Following positioning and IV placement the patient underwent a Dualsource CT exam during a 6-second breath hold following administration of 80 ccof Isoview-370 contrast agent at a rate 5 ml/sec and 40 ml saline flush. Image Interpretation: The calcium score is measured as 258 Agatston Units. The left ventricular ejection fraction was calculated at 64 %. The major pulmonary arteries and branches are normal. The aortic valve is tri-leaflet and the aortic root is normal in dimension and orientation. Left main coronary artery divides into LAD , circumflex and ramus intermedius branches. There is significant coronary artery disease ofthe left coronary artery system with a mixed plaque involving the distalleft main coronary artery just proximal to branching point. This plaqueextends into the LAD and results in approximately 60 percent narrowing of theLAD at its origin. Multiple mixed plaques are noted throughout the course of the left anterior descending coronary artery with up to 70 percent stenosis noted in the proximal to mid LAD. The distal LAD is patent. A partially calcified plaque is noted at the origin of the ramusintermedius branch with mild narrowing. Multiple plaques are present throughout the circumflex artery with up to mild narrowing. The right coronary arteryis dominant and gives rise to PDA. A few small calcified plaques arepresent throughout the right coronary artery without significant narrowing. The heart size within normal limits. There is no pericardial effusion.The visualized parts of the lungs are clear without focal consolidations. Impression: Calcium score of 258 Agatston Units. Ramus intermedius branch is present. Coronary artery disease most significant in the left coronary artery system. A mixed plaque is present in the distal left main coronaryartery extends into the origin of the LAD with approximately 60 percent narrowing. Multiple mixed plaques are present throughout the LAD with up to 70 percent stenosis noted in the proximal to mid LAD. The distal LADis patent. Multiple calcified plaques throughout the circumflex and right coronary artery without significant narrowing. Study also reviewed by: Dr. Sheppard and Dr. Magallon. This report was electronically signed by Lew CARTWRIGHT M.D. on 10/10/2021 4:33 PM . Andrea Peng DO CT ORDERABLES * (ABNORMAL) CREATININE - POCT INTERFACED (10/10/2021 9:33 AM CDT) Creatinine POCT 1.12 0.30 - 1.30 mg/dL 10/10/2021 9:48 AM CDT [facility] eGFR 70(L) >90 mL/min/1.7 3 m2 10/10/2021 9:48 AM CDT [facility] Blood BLOOD SPECIMEN / Unknown 10/10/2021 9:33 AM CDT 10/10/2021 9:48 AM CDT Provider Unknown LAB - POINT OF CARE ORDERABLES [facility] [address] [place] [address], [facility] [phone] * LA LIVER ELASTOGRAPHY (09/22/2021 1:54 PM CDT) Narrative Jeramie Borrego MD - 09/22/2021 1:54 PM CDT Jeramie Borrego MD ? 09/26/2021 ??9:24 PM Diagnosis: NAFLD RN verified patient has no implanted devices and NPO for prior 3 hours. Procedure explained and consent signed. Date of Exam: 09/22/2021 Liver Stiffness: (LSM, kPa) median: ??12.3 IQR (interquartile range): ?? 2.0 IQR/Median% (ideally < 30%): ??16 CAP (controlled attenuation parameter): ??400 Technical Difficulty: None Ordering Provider: Milena Gomez NP Phone Fax Fibroscan interpretation: I have personally reviewed the Fibroscan report and associated tracings. The calculated Liver Stiffness Measurement (LSM, kPa) indicates that: The probability of advanced liver fibrosis is: high. The loss of ultrasound signal, (controlled attenuation parameter, CAP [dB/m]), indicates that the probability of hepatic steatosis is: moderate. Jeramie Borrego MD The following criteria are used to indicate the probability of advanced (stage 3-4) fibrosis: < 7.0 kPa: low 7.0-8.9 kPa: low to moderate 9.0-14.9 kPa: moderate 15-20 kPa: high > 20 kPa: very high Liver stiffness > 20 kPa is also associated with a high probability of complications of portal hypertension including varices and ascites. Liver stiffness > 50 kPa is associated with a high risk of variceal bleeding. These interpretations are based on the following published data: Adelita PJ, Zaina M, Tere M, et al. Accuracy of FibroScan controlled attenuation parameter and liver stiffness measurement in assessing steatosis and fibrosis in patients with nonalcoholic fatty liver disease. Gastroenterology 2019;156:7049-8568. Arianne MS, Briana R, Van Rafael ML, et al. Vibration-controlled transient elastography to assess fibrosis and steatosis in patients with nonalcoholic fatty liver disease. Clin Gastroenterol Hepatol 2019;17:156-163. Note: 1. Fibroscan cannot reliably identify earlier stages of fibrosis (ie distinguish F0 from F1 and F2) and thus a histologic stage cannot be predicted from the Fibroscan reading. 2. Assessing the likelihood of advanced fibrosis in patients with indeterminate liver stiffness measurement (LSM) by Fibroscan (e.g., 8-15 kPa) can be improved by also calculating the FIB4 score (Jersonyduke et al. Hepat[employer] 2019;3:0112-6881) or NAFLD Fibrosis score (Pond et al. Clinical Gastroenterology and Hepatology 2019;17:8489-0614. from routine clinical data. 3. Liver stiffness can be increased by factors other than fibrosis including passive congestion, infiltrative processes, active alcoholism, biliary obstruction and marked inflammation. The interpretation of the Fibroscan result provided above may not have taken such clinical factors into account. Disease etiology also influences Fibroscan cutoff values for fibrosis stages and the following cutoffs have been proposed (Jessica et al, Clin Gastro Hepatol 2015; 13:27-36): Cutoffs for Stage 3 and Stage 4 fibrosis respectively: Hepatitis B: >9 and >11.7 kPa Hepatitis C: >9.5 and >12.5 kPa HCV-HIV: >11 and >14 kPa Cholestatic liver diseases: >10 and >17.9 kPa NAFLD/RESENDIZ: >10 and >14 kPa CAP estimates of steatosis: normal <200 dB/m mild 200 to 250 dB/m moderate 250-290 dB/m substantial > 290 dB/m (Note that Fibroscan is not a quantitative measure of liver fat.) These criteria are estimates and may change as additional supporting data becomes available. [email or web address] Milena Gomez CIVIL ENGINEERING DESIGN DRAFTSPERSON-SENIOR STAFF PSYCHOLOGIST PROCEDURE/MA NOR SURGICAL ORDERABLES * TSH (EXTERNAL RESULT ENTRY) (09/13/2021) TSH (EXTERNAL RESULT) 2.030 uIU/mL Blood BLOOD SPECIMEN / Unknown 09/13/2021 Historical Provider LAB - CHEMISTRY O RDERABLES * (ABNORMAL) HEMOGLOBIN A1C (EXTERNAL RESULT ENTRY) (09/13/2021) Hemoglobin A1c (EXTERNAL RESULT) 6.8(H) % Blood BLOOD SPECIMEN / Unknown 09/13/2021 Historical Provider LAB - CHEMISTRY O RDERABLES * HEMATOLOGY PROF (EXTERNAL RESULT ENTRY) (03/15/2021) Hemoglobin (EXTERNAL RESULT) 16.5 g/dl WBC (EXTERNAL RESULT) 11.7 10^3/ul Hematocrit (EXTERNAL RESULT) 47.6 % Platelets (EXTERNAL RESULT) 138 10^3/ul Neutrophil Absolute (EXTERNAL RESULT) 8.0 10^3/ul Blood BLOOD SPECIMEN / Unknown 03/15/2021 Milena Gomez CIVIL ENGINEERING DESIGN DRAFTSPERSON-SENIOR STAFF PSYCHOLOGIST LAB - CHEMIS TRY ORDERABLES * CT ABDOMEN MULTI PHASE W CONT (01/14/2018 10:33 AM CDT) Anatomical Region Laterality Modality Computed Tomogra phy 01/14/2018 10:3 9 AM CDT Impressions 01/15/2018 1:27 PM CDT IMPRESSION: 1. No arterially-enhancing hepatic lesion concerning for hepatocellular carcinoma. 2. Hepatic cirrhosis with sequela of portal hypertension. 3. No evidence of splenomegaly. Dictated by Carmina Ruiz MD (associate vice president). I, Dr. BRITTANI BARNES M.D. have personally reviewed and interpreted this examination/study. This report was electronically signed by BRITTANI BARNES M.D. ??on 01/15/2018 1:27 PM . Narrative 01/15/2018 1:27 PM CDT EXAMINATION: Computed tomography (CT) of the abdomen with contrast HISTORY: Thrombocytopenia with history of hepatitis C TECHNIQUE: CT of the abdomen was performed following the uneventful administration of 100 mL of Isovue-370 intravenous contrast according to a three-phase liver protocol. COMPARISON: No prior study is available for comparison. FINDINGS: The aorta is normal in course and caliber. The visible lung bases are clear. The heart size is normal without pericardial effusion. Mild surface nodularity of the liver is consistent with hepatic cirrhosis. No arterially enhancing lesions suspicious for hepatocellular carcinoma are seen. The hepatic arterial anatomy is conventional. The portal vein is nondilated. The portal and main hepatic veins are patent without evidence of thrombi. No ascites is identified. Small perigastric and perisplenic varices are seen. Multiple tiny calcified granulomas are present in the spleen. The spleen is normal-sized. The gallbladder is surgically absent. The intrahepatic and extrahepatic bile ducts are nondilated. The pancreas and adrenal glands are normal. Other than bilateral renal cysts, the kidneys enhance symmetrically. There is no evidence of renal calculus or hydronephrosis. The distal esophagus and stomach appear normal. The visible portions of the small bowel and large bowel are normal in caliber without evidence of wall thickening or obstruction. No free intraperitoneal air is seen. No lymphadenopathy is identified. Bone windows demonstrate no suspicious lytic or blastic lesions. The visible osseous structures are intact. Procedure Note Brittani Barnes MD - 01/15/2018 EXAMINATION: Computed tomography (CT) of the abdomen with contrast HISTORY: Thrombocytopenia with history of hepatitis C TECHNIQUE: CT of the abdomen was performed following the uneventful administration of 100 mL of Isovue-370 intravenous contrast according toa three-phase liver protocol. COMPARISON: No prior study is available for comparison. FINDINGS: The aorta is normal in course and caliber. The visible lung bases are clear. The heart size is normal without pericardial effusion. Mild surface nodularity of the liver is consistent with hepaticcirrhosis. No arterially enhancing lesions suspicious for hepatocellular carcinoma are seen. The hepatic arterial anatomy is conventional. The portal veinis nondilated. The portal and main hepatic veins are patent withoutevidence of thrombi. No ascites is identified. Small perigastric and perisplenic varices are seen. Multiple tiny calcified granulomas are present in the spleen. The spleen is normal-sized. The gallbladder is surgically absent. The intrahepatic and extrahepatic bile ducts are nondilated. The pancreas and adrenal glands are normal. Other than bilateral renal cysts, the kidneys enhance symmetrically.There is no evidence of renal calculus or hydronephrosis. The distal esophagus and stomach appear normal. The visible portions of the small bowel and large bowel are normal in caliber without evidenceof wall thickening or obstruction. No free intraperitoneal air is seen. No lymphadenopathy is identified. Bone windows demonstrate no suspicious lytic or blastic lesions. The visible osseous structures are intact. IMPRESSION: 1. No arterially-enhancing hepatic lesion concerning for hepatocellular carcinoma. 2. Hepatic cirrhosis with sequela of portal hypertension. 3. No evidence of splenomegaly. Dictated by Carmina Ruiz MD (associate vice president). I, Dr. BRITTANI BARNES M.D. have personally reviewed and interpretedthis examination/study. This report was electronically signed by BRITTANI BARNES M.D. on 01/15/2018 1:27 PM . Milena Gomez APRN-SENIOR STAFF PSYCHOLOGIST CT ORDERABLE S * CREATININE BLOOD - POCT (IP) [facility] (01/14/2018 10:25 AM CDT) Creatinine POCT 1.21 0.3 - 1.3 mg/dL [facility] POCT TESTING eGFR POCT 60 60 ml/min [facility] POCT TESTING Blood BLOOD SPECIMEN / Unknown 01/14/2018 10:25 AM CDT Milena Gomez APRN-SENIOR STAFF PSYCHOLOGIST LAB - POINT OF CARE ORDERABLES Performing Organization Address City/State/[facility] Co de Phone Number [facility] POCT TESTING [address] [place] [address] * PT-INR U (10/29/2012 3:41 PM CDT) Only the most recent of5 resultswithin the time period is included. PT 13.5 12.1 - 14.8 SECONDS [facility] INR 1.0 [facility] Comment: SUGGESTED THERAPEUTIC RANGE FOR LOW-INTENSITY COUMADIN THERAPY FOR VENOUS THROMBOEMBOLISM IS INR 2.0-3.0. ??FOR HIGH RISK PATIENTS (MITRAL VALVE PROSTHESIS, ATRIAL FIBRILLATION, HISTORY OF TIA/STROKE), SUGGESTED THERAPEUTIC RANGE IS INR 2.5-3.5. 10/29/2012 3:41 PM CDT 10/29/2012 4:36 PM CDT Milena Gomez APRN-SENIOR STAFF PSYCHOLOGIST LAB - COAGUL ATION ORDERABLES [facility] [address] [place] [address] * (ABNORMAL) CBC W AUTO DIFFERENTIAL (10/29/2012 3:41 PM CDT) Only the most recent of3 resultswithin the time period is included. WBC 11.5(H) 3.5 - 10.5 10^3/uL [facility] WBC (corrected for NRBC) COMMENT [facility] Comment:THE WBC COUNT IS COR RECTED BY THE INSTRUMENT FOR NRBC'S. RBC 5.77(H) 4.30 - 5.70 10^6/uL [facility] Hemoglobin 19.2(H) 13.5 - 17.5 g/dL [facility] Hematocrit 53.9(H) 39.0 - 50.0 % [facility] MCV 93.4 81.0 - 97.0 FL [facility] MCH 33.3 28.0 - 34.0 PG [facility] MCHC 35.6 32.0 - 36.0 G/DL [facility] Platelet 136(L) 150 - 400 10^3/uL [facility] RDW 13.3 11.2 - 14.8 % [facility] RDW-SD 45.1 36 - 50 FL [facility] MPV 11.2 9.3 - 12.8 FL [facility] Differential Type MANUAL [facility] Neutrophils Absolute Manual 8.28(H) 1.7 - 7.0 10^3/uL [facility] Comment:(BANDS AND SEGS) X W BC = NEUT # (ANC) Lymphocytes Absolute Manual 2.42 0.9 - 2.9 10^3/uL [facility] Monocyte Absolute Manual 0.58 0.3 - 0.9 10^3/uL [facility] Eosinophils Absolute Manual 0.12 0.05 - 0.50 10^3/uL [facility] Basophil Manual 0.12(H) 0.00 - 0.10 10^3/uL [facility] Band % Manual 1 0 - 10 % [facility] Neutrophils % manual 71(H) 30 - 60 % [facility] Lymphocytes % manual 21 20 - 45 % [facility] Monocytes % Manual 5 2 - 10 % [facility] Eosinophils % Manual 1 1 - 6 % [facility] Basophil % Manual 1 1 - 6 % [facility] Platelet Estimate ADQ,RBC MORPH NORMAL [facility] 10/29/2012 3:41 PM CDT 10/29/2012 4:36 PM CDT Milena M Jason CIVIL ENGINEERING DESIGN DRAFTSPERSON-SENIOR STAFF PSYCHOLOGIST LAB - HEMATO LOGY ORDERABLES [facility] [address] [place] [address] * (ABNORMAL) COMPREHENSIVE METABOLIC PANEL (10/29/2012 3:41 PM CDT) Only the most recent of5 resultswithin the time period is included. BUN 12 7 - 26 mg/dL [facility] Creatinine 1.2 0.6 - 1.2 mg/dL [facility] eGFR by MDRD > 60 ML/MIN [facility] Comment: Chronic kidney disease: ??<60 ml/min Kidney failure: ?<15 ml/min Based on BSA of 1.73m2. Sodium 139 136 - 145 mmol/L [facility] Potassium 4.6(H) 3.5 - 4.5 mmol/L [facility] Comment:SLIGHT HEMOLYSIS. Chloride 101 98 - 107 mmol/L [facility] CO2 24 22 - 29 mmol/L [facility] Glucose 99 70 - 115 mg/dL [facility] Calcium 10.4(H) 8.4 - 10.2 mg/dL [facility] Protein Total 7.9 6.0 - 8.3 g/dL [facility] Albumin 4.0 3.4 - 5.0 g/dL [facility] Bilirubin Total 1.2 0.2 - 1.2 mg/dL [facility] Alkaline Phosphatase 63 40 - 150 Units/L [facility] ALT 56(H) 0 - 55 Units/L [facility] AST 39(H) 5 - 34 Units/L [facility] Anion Gap 19(H) 8 - 18 [facility] BUN/Creatinine Ratio 10 7 - 23 [facility] Osmolality Calculation 273 270 - 300 mOsm/kg [facility] Albumin/Globulin Ratio 1.0(L) 1.1 - 2.3 [facility] 10/29/2012 3:41 PM CDT 10/29/2012 4:36 PM CDT Milena Gomez APRN-SENIOR STAFF PSYCHOLOGIST LAB - CHEMIS TRY ORDERABLES Performing Organization Address [facility] Co de Phone Number [address] [phone] * IRON BLOOD (10/29/2012 3:41 PM CDT) Iron 119 50 - 175 mcg/dL [facility] 10/29/2012 3:41 PM CDT 10/29/2012 4:36 PM CDT Milena Gomez APRN-SENIOR STAFF PSYCHOLOGIST LAB - CHEMIS TRY ORDERABLES Performing Organization Address [facility] Co de Phone Number [address] [phone] * FERRITIN (10/29/2012 3:41 PM CDT) Ferritin 165 22 - 275 ng/mL [facility] 10/29/2012 3:41 PM CDT 10/29/2012 4:36 PM CDT Milena Gomez APRN-SENIOR STAFF PSYCHOLOGIST LAB - CHEMIS TRY ORDERABLES Performing Organization Address [facility] de Phone Number [address] [phone] * HEPATITIS C RNA QUANTITATIVE (10/09/2012) Only the most recent of2 resultswithin the time period is included. Hepatitis C Virus RNA IU/mL not detected not detected IU/mL [facility] Blood specimen (specimen) 10/09/2012 Nisha FATIMA LAB - CHEMISTRY VERONICA BANEGAS Performing Organization Address [facility] Co de Phone Number [facility] * PATHOLOGY REPORTS - HPF HISTORICAL (11/16/2011 2:23 PM CDT) Only the most recent of2 resultswithin the time period is included. 11/16/2011 2:23 PM CDT Narrative [facility] - 11/16/2011 2:23 PM CDT Historical Provider LAB - PATHOLOGY/C YTOLOGY ORDERABLES Performing Organization Address [facility] Co de Phone Number [facility] [address] * ALPHA FETOPROTEIN + AFP-L3 (10/20/2011 1:04 PM CDT) Only the most recent of2 resultswithin the time period is included. Alpha-Fetoprotein 1.6 0.0 - 8.0 ng/mL [facility] [employer] Comment: AFP and AFP-L3% measured by [employer] liquid phase binding methodology. Results for this test should not be used as absolute evidence of presence or absence of malignant disease without confirmation of the diagnosis by another medically established diagnostic product or procedure. ??Values obtained with different assay methods or kits cannot be used interchangeably. Alpha-Fetoprotein -L3% 0.0 - 9.9 % [facility] [employer] ([employer] Comment:AFP-L3% result is be low the detection limit of the assay. 10/20/2011 1:04 PM CDT 10/20/2011 8:46 PM CDT Narrative [facility] [employer] ([employer] - 10/26/2011 3:36 PM CDT Performed at: ??03 - [facility] [address] ??[id number] Eligibility Counselor: Colby Beck MD, Phone: ??[phone] Specimen Comment: A courtesy copy of this report has been sent to Specimen Comment: the patient, . Nisha FATIMA LAB - CHEMISTRY VERONICA BANEGAS Performing Organization Address [facility]/ZIP Co de Phone Number [facility] [employer] ([employer] * HEPATITIS C QUANT RT PCR GRAPHICAL (10/20/2011 1:04 PM CDT) Hepatitis C Virus Quantitation HCV Not Detected IU/mL [facility]) Hepatitis C Virus Log 10 CANCELED log10 IU/mL [facility] ([facility]) Comment: Unable to calculate result since non-numeric result obtained for component test. Result canceled by the ancillary Test Information [facility] ([facility]) Comment: The quantitative range for this assay is 25 IU/mL to 69 Million IU/mL using a combination of Taqman real-time PCR (LLOQ 43 IU/mL) plus reflex to another Taqman assay (LLOQ 25 IU/mL) for low viral load samples that were detectable by the original Taqman real-time PCR assay but not quantifiable. The limit of detection of the assay is 7.1 IU/mL for HCV Genotype 1. 10/20/2011 1:04 PM CDT 10/20/2011 8:46 PM CDT Narrative [facility]) - 10/26/2011 3:36 PM CDT Performed at: ??02 - [facility] [address] [place] [address] ??[id number] Eligibility Counselor: Ben Joseph PhD, Phone: ??[phone] Specimen Comment: A courtesy copy of this report has been sent to Specimen Comment: the patient, . Nisha FATIMA LAB - CHEMISTRY VERONICA BANEGAS [facility] * HEPATITIS C RNA QUALITATIVE PCR (10/20/2011 1:04 PM CDT) Only the most recent of2 resultswithin the time period is included. Hepatitis C Virus RNA PCR Negative Negative [facility] ([facility]) Comment:Negative: HCV RNA No t Detected 10/20/2011 1:04 PM CDT 10/20/2011 8:46 PM CDT Narrative [facility]) - 10/26/2011 3:36 PM CDT Performed at: ??02 - [facility] [address] [place] [address] ??[id number] Eligibility Counselor: Ben Joseph PhD, Phone: ??[phone] Specimen Comment: A courtesy copy of this report has been sent to Specimen Comment: the patient, . Nisha FATIMA LAB - SEROLOGY ORDER FREDIS [facility] (BEAKER) * TESTOSTERONE FREE (DIRECT)+TOTAL (04/02/1998 12:00 AM RN OPERATING ROOM) Testosterone Total 814 [facility] 04/02/1998 Narrative [facility] - 04/02/1998 12:00 AM RN OPERATING ROOM This order was created through External Result Entry Historical Provider LAB - CHEMISTRY O RDERABLES [facility] * HEMOGLOBIN A1C (04/02/1998 12:00 AM RN OPERATING ROOM) Hemoglobin A1c 5.3 % [facility] Blood specimen (specimen) 04/02/1998 Narrative [facility] - 04/02/1998 12:00 AM RN OPERATING ROOM This order was created through External Result Entry Historical Provider LAB - CHEMISTRY O RDERASARI [facility] * HCG BETA BLOOD TUMOR MARKER (04/02/1998 12:00 AM RN OPERATING ROOM) hCG Tumor Marker <2 [facility] 04/02/1998 Narrative [facility] - 04/02/1998 12:00 AM RN OPERATING ROOM This order was created through External Result Entry Historical Provider LAB - CHEMISTRY O RDERABLES [facility] Care Teams Family Practice Md Relationship Specialty Start Date End Date Júnior Daley MD [address] [place] [id number] [facility] - General 02/03/19
--- OUTSIDE RECORDS SUMMARY | 2024-05-06 16:45 | XMS_ITS | Clinical Summary ---
Author Organization [facility] Address [address] [place] [address] Care Team Providers Care Rail Detector Car Operator Name Role Phone Júnior Daley MD Primary Care Provider [phone] Source Comments [facility],non-owned Affiliates and Associated Physician Practices is amultiple site organization consisting of ambulatory clinics and hospital sitesin [place], [place], [place] and [place]. This disclosure is being madepursuant to the Care Everywhere program and may not contain all information available regarding this patient. Last updated 17.[facility] Allergies Active Allergy Reactions Criticality Noted Date Comments Adhesive Sensitivity Other,Rash Medium 09/05/2017 Blisters Latex Rash Medium 01/08/2017 Medications * Be aware that medications may not be up to date on this document. Alwaysverify current medications with the patient. Medication Sig Dispensed Refills Start Date End Date Status ALPRAZolam (XANAX) 0.5 MG tablet Take 1 (one) tablet by mouth 2 times daily as needed for Anxiety 05/23/2016 Active HYDROcodone-ibuprof en (IBUDONE) 7.5-200 MG every 6 hours as needed 12/25/2017 Active Flaxseed, Linseed, (FLAX SEEDS PO) Take by mouth once daily Active Carboxymeth-Glyceri n-Polysorb (REFRESH OPTIVE JUHI-3 OP) by Ophthalmic route 3 times daily as needed Active aspirin (ASPIRIN) 81 MG tablet Take 1 (one) tablet by mouth once daily Active losartan (COZAAR) 50 MG tablet Take 1 (one) tablet by mouth once daily 02/03/2021 Active modafinil (PROVIGIL) 200 MG tablet Take 1 (one) tablet by mouth once daily as needed Active cyclobenzaprine (FLEXERIL) 5 MG tablet Take 1 (one) tablet by mouth once daily as needed Active gabapentin (NEURONTIN) 300 MG capsule Take 1 (one) capsule by mouth 2 times daily 08/26/2021 Active metFORMIN ER 24hr (GLUCOPHAGE XR) 500 MG tablet Take 2 (two) tablets by mouth 2 times daily 08/02/2021 Active [place]-3 1000 MG Take 2,000 mg by mouth once daily Active amLODIPine (Norvasc) 10 MG tablet Take 1 (one) tablet by mouth once daily Active diphenhydrAMINE (Benadryl Allergy) 25 MG capsule Take 1 (one) capsule by mouth nightly as needed for Itching Active fluticasone propionate (Flonase) 50 MCG/ACT nasal spray Acushnet 2 (two) sprays into each nostril as needed 05/15/2022 Active pravastatin (Pravachol) 10 MG tablet Take 1 (one) tablet by mouth once daily 01/11/2023 Active Flaxseed Oil (Linseed Oil) Take by mouth once daily Active colestipol (Colestid) 1 GM tablet Take 1 (one) tablet by mouth 2 times daily 60 tablet 5 10/02/2023 Active Active Problems Problem Noted Date Diagnosed Date Combined forms of age-related cataract of both e yes 11/04/2019 Overview (03/24/2021): Last Assessment & Plan: ADL being met Observe RTC 1yr Cirrhosis 02/04/2019 Overview (02/04/2019): 01/14/18 CT: nodular liver, no focal lesions, varices, no ascites Obesity 02/04/2019 Trichiasis of eyelid of both eyes 01/07/2019 Overview (03/24/2021): Last Assessment & Plan: None seen on exam today 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 01/07/2019 Overview (03/24/2021): Last Assessment & Plan: Improved on intermittent flax seed oil capsules Continue with PFAT Return 1 year Dry eye syndrome of both lacrimal glands 019 Overview (03/24/2021): Last Assessment & Plan: Nonalcoholic fatty liver disease 01/14/2018 Overview (09/26/2021): 11/23/2016 US: diffusely echogenic liver ??consistent with fatty liver 09/22/21 Fibroscan CAP 400, LSM 12.3 kPa 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 RTC 1 year or PRN Chronic viral hepatitis C 04/28/2014 Overview (02/04/2019): HCV G1 S1 1b that was diagnosed in 2007. He was cured (SVR) with Peg-Intron and RBV from November 20, 2008 to October 15, 2009. 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 Thrombocytopenia 10/29/2012 Pre-diabetes Back pain Family History Medical History Relation Name Comments Heart Disease Brother 1 Status: Alive Macular Degeneration Brother 1 Diabetes Brother 2 Glaucoma Brother 3 None Known Daughter Status: Alive Diabetes Father Status: d Arthritis Mother Diabetes Mother Status: d Hypertension Mother Diabetes Sister Status: Alive Macular Degeneration Sister None Known Son Status: Alive Relation Name Status Comments Brother 1 Brother 2 Brother 3 Daughter Father Mother Sister Son Social History Tobacco Use Types Packs/Day Years [...] Mass Index 34.21 10/02/2023 2:57 PM CDT Plan of Treatment Health Maintenance Due Date Last Done Comments COLOGUARD (AGES 45-75) - COLON CA SCREENING 1950 COLON MONITORING 1950 COLONOSCOPY - COLON CA SCREENING 1950 CT COLONOGRAPHY - COLON CA SCREENING 1950 Colorectal Cancer Screening 1950 FIT - COLON CA SCREENING 1950 FLEX SIG - COLON CA SCREENING 1950 MEDICARE AWV ? 12 MONTHS 1950 DTAP/TDAP/TD VACCINES (1 - Tdap) 1969 PNEUMOCOCCAL VACCINE 50+ (1 of 2 - PCV) 1969 ZOSTER VACCINE (1 of 2) 2000 HEPATITIS B VACCINE (1 of 3 - Risk 3-dose series) 2010 Respiratory Syncytial Virus (RSV) Vaccine Pt: or over 60 yrs (1 - Risk 60-74 years 1-dose series) 2010 COVID-19 VACCINE (1 - season) 2023 INFLUENZA VACCINE (#1) 2023 DEPRESSION SCREENING 04/02/2024 HEPATITIS C SCREENING Completed 09/22/2021 , 02/03/2019, 01/14/2018, Additional history exists HIB VACCINE Aged Out No longer eligi ble based on patient's age to complete this topic HPV VACCINE Aged Out No longer eligi ble based on patient's age to complete this topic MENINGOCOCCAL (Group B) VACCINE Aged Out No longer eligible based on patient's age to complete this topic MENINGOCOCCAL VACCINE Aged Out No donato billie eligible based on patient's age to complete this topic Goals Goal Patient Goal Type Associated Problems Recent Progress Patient-Stated? Author Medication Management General On track( 024 3:25 PM CDT) Esther Gill RN Note: Expected end date: ongoing Interventions: Take all medications as prescribed Let your doctor know right away about any changes in your medications Make sure to request a refill of your medication at least one week prior to your last dose Procedures Procedure Name Priority Date/Time Associated Diagnosis Comments HEPATITIS C RNA QUANTITATIVE Routine 10/09/2012 from Last 3 Months or Most Recently Relevant to Health Maintenance Results * HEPATITIS C RNA QUANTITATIVE PCR (10/09/2012) Hepatitis C Virus RNA IU/mL not detected IU/mL [facility] Hepatitis C Virus Log 10 not detected IU/mL [facility] Blood specimen (specimen) 10/09/2012 Nisha FATIMA LAB - CHEMISTRY VERONICA BANEGAS [facility] from Last 3 Months or Most Recently Relevant to Health Maintenance Care Teams Rail Detector Car Operator Relationship Specialty Start Date End Date Júnior Daley MD [address] [place] [address] PCP - General 02/03/19
--- OUTSIDE RECORDS SUMMARY | 2024-05-06 16:45 | XMS_ITS | Referral Summary ---
Author Organization [facility] Address [address] [place] [address] Care Team Providers Care Supervisor Audit Clerks Name Role Phone Júnior Daley MD Primary Care Provider Satya Andre OD Unavailable [phone] Encounters Date Type Department Care Team Description 02/21/[address] [facility] Medical Group Cardiology [address] [place] [phone] Song Wilkerson MD Med Management 02/20/2024 2:30 PM STRAPPING MACHINE OPERATOR Office Visit [facility] Medical [facility] Cardiology [address] [place] [address] Song Wilkerson MD Coronary artery disease of [place] artery of [place] heart with stable angina pectoris (HCC) (Primary Dx); Status post angioplasty with stent; Hypertension associated with diabetes (HCC); COCO (obstructive sleep apnea) from Last 3 Months Allergies Active Allergy Reactions Criticality Noted Date Comments Adhesive Other (See comments),Rash Medium 09/05/2017 Blisters Adhesive Tape-Silicones Rash Medium 09/05/2017 Latex Rash Medium 01/08/2017 blisters Medications modafiniL (PROVIGIL) 200 mg tabletIndication s:Narcolepsy Syndrome,Sleepin ess Due To Obstructive Sleep Apnea,morning PRN Take 1 tablet (200 mg total) by mouth daily as needed Active HYDROcodone-ibup rofen (VICOPROFEN) 7.5-200 mg per tabletIndication s:Pain Take 1 tablet by mouth every 12 (twelve) hours as needed for pain Active aspirin 81 mg enteric coated tablet Take 1 tablet (81 mg total) by mouth daily 6 Active Contour Next Test Strips strip USE TO TEST EVERY MORNING 2 Active gabapentin (NEURONTIN) 300 mg capsule Take 1 capsule (300 mg total) by mouth nightly 2 Active metFORMIN XR (GLUCOPHAGE XR) 500 mg 24 hr tablet Take 1 tablet (500 mg total) by mouth 2 (two) times a day 2 Active pravastatin (PRAVACHOL) 10 mg tablet Take 1 tablet (10 mg total) by mouth nightly 3 Active amLODIPine (NORVASC) 10 mg tablet Take 1 tablet (10 mg total) by mouth daily 90 tablet 1 4 Active flaxseed oiL 1,000 mg capsule Take 1 capsule (1,000 mg total) by mouth daily Active colestipoL (COLESTID) 1 gram tablet Take 1 tablet (1 g total) by mouth as directed Take 2-3 times a week Active clopidogreL (PLAVIX) 75 mg tablet Take 1 tablet (75 mg total) by mouth daily 30 tablet 11 4 12/25/19 25 Active losartan (COZAAR) 100 mg tablet Take 1 tablet (100 mg total) by mouth nightly 90 tablet 6 4 Active Active Problems Problem Noted Date Diagnosed Date Angina pectoris, unstable (CMS/HCC) 10/17/2023 Coronary artery disease of n [place]ive artery of [place] heart with stable angina pectoris 10/17/2023 Combined forms of age-related cataract of both e yes 11/04/2019 Assessment & Plan (11/04/2019 3:07 PM CDT): ADL being met Observe RTC 1yr Trichiasis of eyelid of both eyes 01/07/2019 Assessment & Plan (11/11/2020 4:01 PM CDT): None seen on exam today Assessment & Plan (03/13/2019 4:39 PM STRAPPING MACHINE OPERATOR): No lashes contacting cornea Assessment & Plan (01/07/2019 3:32 PM CDT): Few nasally in lower lid (LL), both eyes (OU) Epilated on exam today 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 and Warm water lid scrubs OU b.i.d. - Flaxseed oil p.o. 1000 mg b.i.d. RTC 6 mos Assessment & Plan (03/13/2019 4:44 PM STRAPPING MACHINE OPERATOR): - Feels symptoms are improved but continues to have discomfort - meibomian gland dysfunction (MGD) on exam - Continue refresh Kevin 3 OU q.i.d. and Warm water lid scrubs OU b.i.d. - Flaxseed oil p.o. 1000 mg b.i.d.- not using GI side effects - Gareth poly dex ointment OU q.h.s.- not using since insurance wouldn't cover it - Start PO azithromycin 1g qweekly x 3 weeks RTC 6 weeks Assessment & Plan (01/07/2019 3:49 PM CDT): Add refresh Kevin 3 OU q.i.d. Flaxseed oil p.o. 1000 mg b.i.d. Warm water lid scrubs OU b.i.d. Gareth poly dex ointment OU q.h.s. RTC 2 months Continued continue 11/21/2018 Dry eye syndrome of both lacrimal glands 019 Assessment & Plan (03/13/2019 4:39 PM STRAPPING MACHINE OPERATOR): Assessment & Plan (01/07/2019 3:31 PM CDT): - Still symptomatic (not improved with LTX) but improved ocular surface on exam - meibomian gland dysfunction (MGD) on exam. - Warm compress - Consider doxycycline 100mg, bid po Assessment & Plan (11/21/2018 4:00 PM CDT): Continue NPAT OU 4 to 6 times a day Add Lotemax ointment OU q.h.s. 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 Assessment & Plan (12/22/2021 3:10 PM CDT): stable Assessment & Plan (11/11/2020 4:20 PM CDT): Peripheral RTC 1 yr Assessment & Plan (05/06/2019 1:48 PM STRAPPING MACHINE OPERATOR): Stable without recurrence status post superficial keratectomy, left eye (OS) 09/12/17 Good vision, both eyes (OU) Observation Assessment & Plan (03/13/2019 1:34 PM STRAPPING MACHINE OPERATOR): Stable without recurrence status post superficial keratectomy, left eye (OS) 09/12/17 Good vision, both eyes (OU) Observation Assessment & Plan (01/07/2019 3:28 PM CDT): Stable without recurrence status post superficial keratectomy, left eye (OS) 09/12/17 Good vision, both eyes (OU) Observation Assessment & Plan (11/21/2018 4:09 PM CDT): Stable without recurrence status post S in the removal OS Assessment & Plan (08/13/2018 3:15 PM CDT): Status post superficial keratectomy OS on 09/12/17 Doing well, off all topical steroids, no sign of recurrence DFE today with mild RPE mottling OD, wnl OS (FHx of AMD) ?? Continue ATs prn Start AREDs ?? RTC 1 year with DFE OU Assessment & Plan (02/12/2018 3:32 PM STRAPPING MACHINE OPERATOR): Status post (s/p) superificial keratectomy left eye (OS) on 09/12/17 Doing well, healed at last visit. IOP good on LTX [place] QHS OS. ?? Plan Ok to stop LTX [place] Start ATs prn ?? RTC 6-9mo with DFE OU (FHx of AMD; nl DFE 07/2017) Assessment & Plan (12/11/2017 3:01 PM CDT): Status post (s/p) superificial keratectomy left eye (OS) on 09/12/17 ?? Doing well, completely healed. ?? Plan Taper off of PF 2x/day x month / 1x/day x 1mo, then stop Continue Lotemax at night until out ?? RTC 1 year or earlier PRN ?? Assessment & Plan (10/16/2017 5:16 PM CDT): Status post (s/p) superificial keratectomy left eye (OS) on 09/12/17 ?? Doing well, epi defect healed, essentially completely healed. ?? Plan Taper off of Prednisone 5x/day x2wks / 4x/zalr0sjn / 3x/day x 2wks / bid Lotemax at night until out ?? RTC 2 months w/MRX ?? Nuclear sclerosis of both eyes 02/28/2016 Assessment & Plan (11/04/2019 3:05 PM CDT): Observation - rec update Mrx with optometry. RTC 1 year or PRN Assessment & Plan (03/13/2019 1:34 PM STRAPPING MACHINE OPERATOR): Not visually significant, observe for now. Assessment & Plan (01/07/2019 3:28 PM CDT): Not visually significant, observe for now. Assessment & Plan (08/13/2018 2:47 PM CDT): Not visually significant, observe for now. Assessment & Plan (02/12/2018 3:32 PM STRAPPING MACHINE OPERATOR): Not visually significant, observe for now. 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 2-3 times a week 03/22/2022 Q2: How many drinks containi ng alcohol do you have on a typical day when you are drinking? 1 or 2 03/22/2022 Q3: How often do you have si x or more drinks on one occasion? Never 03/22/2022 Personal Safety Answer Date Recorded Have you ever been in or are you currently in a harmful physical or emotional relationship or is someone making you feel afraid or unsafe? Denies 11/23/2023 Sex and Gender Information Value Date Recorded Sex Assigned at Not on file Legal Sex Male 12:38 AM STRAPPING MACHINE OPERATOR Gender Identity Not on file Sexual Orientation Not on file Last Filed Vital Signs Vital Sign Reading Time Taken Comments Blood Pressure 136/56 02/20/2024 2:29 PM STRAPPING MACHINE OPERATOR Pulse 75 02/20/2024 2:29 PM STRAPPING MACHINE OPERATOR Temperature 36.7 ??C (98 ??F) 11/23/2023 8:10 AM CDT Respiratory Rate 18 11/23/2023 8:10 AM CDT Oxygen Saturation 95% 02/20/2024 2:29 PM STRAPPING MACHINE OPERATOR Inhaled Oxygen Concentration - - Weight 91.2 kg (201 lb) 02/20/2024 2:29 PM STRAPPING MACHINE OPERATOR Height 165.1 cm (5' 5 ) 02/20/2024 2:29 PM STRAPPING MACHINE OPERATOR Body Mass Index 33.45 02/20/2024 2:29 PM STRAPPING MACHINE OPERATOR Plan of Treatment Not on file Medical Devices Implanted Type Area Lead Enterprise Architect Device Identifier Shelf Expiration Date Model / Serial / Lot Medtronic Card Vasc Surgery 3.0 X 30mm [place] Rx Coronary Stent [id number] - [id number] Implanted:Qty: 1 on 11/23/20[facility] 02/03/2026 [id number] [id number] / / [id number] Medtronic [facility] Vas Surgery 4.0 X 26mm [place] Sullivan Rx Coronary Stent [id number] - [id number] Implanted:Qty: 1 on 11/23/2023 [facility] 10/23/2025 [id number] [id number] / / [id number] Procedures Procedure Name Priority Date/Time Associated Diagnosis Comments POCT LIPID PANEL Routine 10/17/2023 2:47 PM CDT Lipid screening from Last 3 Months or Most Recently Relevant to Health Maintenance Results * POCT lipid panel (10/17/2023 2:47 PM CDT) Cholesterol, POC 119 mg/dL HDL, POC 37 mg/dL Triglycerides, POC 161 mg/dL LDL Cholesterol POC 50 mg/dL Chol/HDL Ratio, POC 1.3 Non-HDL Cholesterol, POC 82 mg/dL Cholesterol Total, POC 119 mg/dL Capillary blood 10/17/2023 2 :47 PM CDT Song Wilkerson MD POINT OF CARE TEST ORDERABLES Fi nal Result from Last 3 Months or Most Recently Relevant to Health Maintenance Insurance MEDICARE MEDICARE MEDICARE [facility] Care Teams Supervisor Audit Clerks Relationship Specialty Start Date End Date Júnior Daley MD [address] [place] [address] PCP - General Family Medicine 08/13/18 Satya Andre OD [address] [place] [address] Optometry 12/21/22
--- OUTSIDE RECORDS SUMMARY | 2024-05-06 16:45 | XMS_ITS | Continuity of Care Document ---
Author Organization [facility] Address [address] [place] [address] [place] [address] Phone Care Team Providers Care School Guidance Counselor Name Role Phone Judy Montano Unavailable Unavailable Procedures Procedure Date Eye Exam, New Patient Refraction Advance Directives Directive Yes / No Effective Date File Name No Information Encounters Encounter Description Practice Location Reason(s) For Visit Diagnoses Date Provider Providers Copied on Encounter [facility], [address], [place], [place], [id number], [place] tel:[phone] [facility] No Information 8 Charmaine Kim. [address] , [address] [facility] [place], [address], [place]. tel:[phone] Referring Provider: Sobia Silva MD, [address] [facility] [place] [place], [address]. tel:[phone] Family History Family Member Type Diagnosis Age At Onset No Information Payers Payer name Insurance type Covered republican ID Authoriza tion(s) [facility] Commercial CI [id number] Social History Type Description Quantity Date Captured [...]
--- OUTSIDE RECORDS SUMMARY | 2024-05-06 16:45 | XMS_ITS | Referral Summary ---
Author Organization [facility] Address [address] [facility] [place] [address] Care Team Providers Care Brake Repairer Name Role Phone Júnior Daley MD Primary Care Provider [phone] Source Comments [facility],non-owned Affiliates and Associated Physician Practices is amultiple site organization consisting of ambulatory clinics and hospital sitesin [place], [place], [place] and [place]. This disclosure is being madepursuant to the Care Everywhere program and may not contain all information available regarding this patient. Last updated 17.[facility] Allergies Active Allergy Reactions Criticality Noted Date [...] by mouth 2 times daily 08/02/2021 Active Honobia-3 1000 MG Take 2,000 mg by mouth once daily Active amLODIPine (Norvasc) 10 MG tablet Take 1 (one) tablet by mouth once daily Active diphenhydrAMINE (Benadryl Allergy) 25 MG capsule Take 1 (one) capsule by mouth nightly as needed for Itching Active fluticasone propionate (Flonase) 50 MCG/ACT nasal spray [place] 2 (two) sprays into each nostril as [...] 10/02/2023 2:57 PM CDT Plan of Treatment Not on file Goals Goal Patient Goal Type Associated Problems Recent Progress Patient-Stated? Author Medication Management General On track( 024 3:25 PM CDT) Esther Gill, RN Note: Expected end date: ongoing Interventions: [...] C Virus RNA IU/mL not detected IU/mL [facility] Hepatitis C Virus Log 10 not detected IU/mL [facility] Blood specimen (specimen) 10/09/2012 [facility]STR[facility] VERONICA BANEGAS [facility] from Last 3 Months or Most Recently Relevant to Health Maintenance Care Teams Brake Repairer Relationship Specialty Start Date End Date Júnior Daley MD [address] [place] [address] PCP - General 02/03/19
--- OUTSIDE RECORDS SUMMARY | 2024-05-06 16:45 | XMS_ITS | Clinical Summary ---
Author Organization [facility] Address [address] [place] [address] Care Team Providers Care Architecture Manager Name Role Phone Júnior Daley MD Primary Care Provider Satya Andre OD Unavailable [phone] Allergies Active Allergy Reactions Criticality Noted Date [...] artery disease of n ative artery of [place] heart with stable angina pectoris 10/17/2023 Combined forms of age-related cataract of both e yes 11/04/2019 Assessment & Plan (11/04/2019 3:07 PM CDT): ADL being met Observe RTC 1yr Trichiasis of eyelid of both eyes 01/07/2019 Assessment & Plan (11/11/2020 4:01 PM CDT): None seen on exam today Assessment & Plan (03/13/2019 4:39 PM CAN DRAGGER): No lashes contacting cornea Assessment & Plan [...] capsules Assessment & Plan (05/06/2019 1:48 PM CAN DRAGGER): - Feels symptoms are improved status post (s/p) Azithromycin - meibomian gland dysfunction (MGD) on exam - Continue refresh Kevin 3 OU q.i.d. and Warm water lid scrubs OU b.i.d. - Flaxseed oil p.o. 1000 mg b.i.d. RTC 6 mos Assessment & Plan (03/13/2019 4:44 PM CAN DRAGGER): - Feels symptoms are improved but continues [...] 019 Assessment & Plan (03/13/2019 4:39 PM CAN DRAGGER): Assessment & Plan (01/07/2019 3:31 PM CDT): [...] yr Assessment & Plan (05/06/2019 1:48 PM CAN DRAGGER): Stable without recurrence status post superficial keratectomy, left eye (OS) 09/12/17 Good vision, both eyes (OU) Observation Assessment & Plan (03/13/2019 1:34 PM CAN DRAGGER): Stable without recurrence status post superficial keratectomy, [...] OU Assessment & Plan (02/12/2018 3:32 PM CAN DRAGGER): Status post (s/p) superificial keratectomy left eye [...] Taper off of Prednisone 5x/day x2wks / 4x/zxvr0xdx / 3x/day x 2wks / bid Lotemax at night until out ?? RTC 2 months w/MRX ?? Nuclear sclerosis of both eyes 02/28/2016 Assessment & Plan (11/04/2019 3:05 PM CDT): Observation - rec update Mrx with optometry. RTC 1 year or PRN Assessment & Plan (03/13/2019 1:34 PM CAN DRAGGER): Not visually significant, observe for now. Assessment & Plan (01/07/2019 3:28 PM CDT): Not visually significant, observe for now. Assessment & Plan (08/13/2018 2:47 PM CDT): Not visually significant, observe for now. Assessment & Plan (02/12/2018 3:32 PM CAN DRAGGER): Not visually significant, observe for now. 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 Encounters Date Type Department Care Team Description 02/21/2024 Telephone [facility] Medical Group Cardiology [address] [place] [address] Song Wilkerson MD Med Management 02/20/2024 2:30 PM CAN DRAGGER Office Visit [facility] Medical Group Cardiology [address] [place] [phone] Song Wilkerson MD Coronary artery disease of [place] artery of [place] heart with stable angina pectoris (HCC) (Primary Dx); Status post angioplasty with stent; Hypertension associated with diabetes (HCC); COCO (obstructive sleep apnea) from Last 3 Months Surgical History Surgery Date Site/Laterality Comments UVULOPALATOPHARYNGOPLASTY CHOLECYSTECTOMY LIVER BIOPSY x2 EYE SURGERY 09/12/2017 Left Salzmann's Nodule removal SUPERFICIAL KERATECTOMY 09/12/2017 Left Medical History Medical History Date Comments COCO (obstructive sleep apnea) Back pain BPH (benign prostatic hyperplasia) COCO (obstructive sleep apnea) no ncompliant with therapy Hepatitis C treated Dystrophy, Salzmann's nodular Cataract BPH (benign prostatic hyperplasia) Noncompliance Anxiety Seasonal allergies Cervical stenosis of spine Carpal tunnel syndrome right Tinnitus left Depression Arthritis CAD (coronary artery disease) Chest pain DUARTE (dyspnea on exertion) Type 2 diabetes mellitus (HCC) Neuropathy (CMS/HCC) Family History Medical History Relation Name Comments Glaucoma Brother Macular degeneration Brother Heart disease Mother Macular degeneration Mother Macular degeneration Sister Relation Name Status Comments Brother Mother Sister Social History Tobacco Use Types Packs/Day Years [...] on file Legal Sex Male 12:38 AM CAN DRAGGER Gender Identity Not on file Sexual Orientation Not on file Obstetrics History Last Filed Vital Signs Vital Sign Reading Time Taken Comments Blood Pressure 136/56 02/20/2024 2:29 PM CAN DRAGGER Pulse 75 02/20/2024 2:29 PM CAN DRAGGER Temperature 36.7 ??C (98 ??F) 11/23/2023 8:10 AM CDT Respiratory Rate 18 11/23/2023 8:10 AM CDT Oxygen Saturation 95% 02/20/2024 2:29 PM CAN DRAGGER Inhaled Oxygen Concentration - - Weight 91.2 kg (201 lb) 02/20/2024 2:29 PM CAN DRAGGER Height 165.1 cm (5' 5 ) 02/20/2024 2:29 PM CAN DRAGGER Body Mass Index 33.45 02/20/2024 2:29 PM CAN DRAGGER Plan of Treatment Health Maintenance Due Date Last Done Comments Albumin Creatinine Ratio, Urine 1950 Colon Cancer Screening-Colonoscopy 1950 Depression Screening 1950 Hemoglobin A1C 1950 eGFR 1950 Foot Exam 1950 DTaP/Tdap/Td Vaccine (1 - Tdap) 1961 Hepatitis B Screening 1968 Zoster Vaccine (1 of 2) 2000 Well Visit 65+ 07/29/2015 Dilated Eye Exam 08/14/2019 08/13/2018 Influenza Vaccine (#1) 2023 9, 01/07/2018, 01/09/2017, Additional history exists Lipid Panel 10/16/2024 10/17/2023, 03/22/2022 Fall Risk Assessment 11/22/2024 11/23/2023 Hepatitis C Screening Completed 05/29/2013 Pneumococcal vaccine 65+ Completed 02/20/2018, 12/31 Medical Devices Implanted Type Area Auto Damage Estimator Device Identifier Shelf Expiration Date Model / Serial / Lot Medtronic Card Vasc Surgery 3.0 X 30mm [place] Rx Coronary Stent [id number] - [id number] Implanted:Qty: 1 on 11/23/2023 by Song Wilkerson MD at [facility] Medtronic Card Vasc Surgery 02/03/2026 [id number] / / [id number] Medtronic Card Vasc Surgery 4.0 X 26mm [place] Rx Coronary Stent [id number] - [id number] Implanted:Qty: 1 on 11/23/2023 by Song Wilkerson MD at [facility] Medtronic Card Vasc Surgery 10/23/2025 [id number] / / [id number] Procedures Procedure Name Priority Date/Time Associated Diagnosis [...] to Health Maintenance Insurance MEDICARE MEDICARE MEDICARE [facility] Care Teams Architecture Manager Relationship Specialty Start Date End Date Júnior Daley MD [address] [place] [address] PCP - General Family Medicine 08/13/18 Satya Andre OD [address] [place] [address] Optometry 12/21/22
== END 2024-05-06 16:41 | disposition home or self-care (01) ==
PROVIDERS: PCP Family Medicine; Visit Provider Family Medicine
DX: R05.9 Cough, unspecified (principal); Z77.090 Contact with and (suspected) exposure to asbestos
CPT/HCPCS: 71046

== ENCOUNTER 2024-08-08 09:07 | Outpatient (CLI) | payer MEDICARE, SELFPAY ==
--- NOTE | ~2024-08-08 | US_ITS ---
Limited Abdominal Sonogram: Real-time sonographic imaging of the right upper quadrant was performed. Clinical History: Cirrhosis Findings: The liver appears normal with no evidence of mass lesion or bile duct dilatation. Main por liyah vein demonstrates normal direction of flow. The gallbladder is absent, compatible prior cholecyst ectomy. The common bile duct measures 2 mm. The visualized pancreas, aorta, and IVC are unremarkable . Right upper pole renal cyst noted measuring 3.2 cm in diameter. Impression: Status post cholecystectomy. No significant abnormality seen. Reviewed, dictated and finalized at location M. Impression: Status post cholecystectomy. No significant abnormality seen.
--- OUTSIDE RECORDS SUMMARY | 2024-08-08 08:02 | XMS_ITS | Continuity of Care Document ---
Author Organization [facility] Address [address] [place] [address] [place] [address] Phone Care Team Providers Care Wire Winding Machine Tender Name Role Phone Judy Montano Unavailable Unavailable Procedures Procedure Date Eye Exam, New Patient Refraction Advance Directives Directive Yes / No Effective Date File Name No Information Encounters Encounter Description Practice Location Reason(s) For Visit Diagnoses Date Provider Providers Copied on Encounter [facility], [address], [place], [place], [id number], [place] tel:[phone] [facility] No Information 8 Charmaine Kim. [address] , [address] [facility], [place], [address], [place]. tel:[phone] Referring Provider: Sobia Silva MD, [address] [facility] [place], [address]. tel:[phone] Family History Family Member Type Diagnosis Age At Onset No Information Payers Payer name Insurance type Covered constitution party ID Authoriza tion(s) [facility] Commercial CI [id number] Social History Type Description Quantity Date Captured [...]
--- OUTSIDE RECORDS SUMMARY | 2024-08-08 08:02 | XMS_ITS | Clinical Summary ---
Author Organization [facility] Address [address] [facility] [place] [address] Care Team Providers Care Desktop Support Associate Name Role Phone Júnior Daley MD Primary Care Provider [phone] Source Comments [facility],non-owned Affiliates and Associated Physician Practices is amultiple site organization consisting of ambulatory clinics and hospital sitesin [place], [place], [place] and [place]. This disclosure is being madepursuant to the Care Everywhere program and may not contain all information available regarding this patient. Last updated 17.[facility] Allergies Active Allergy Reactions Criticality Noted Date Comments Adhesive Sensitivity Other,Rash Medium 09/05/2017 Blisters Latex Rash Medium 01/08/2017 Medications * Be aware that medications may not be up to date on this document. Alwaysverify current medications with the patient. ALPRAZolam (XANAX) 0.5 MG tablet Take 1 (one) tablet by mouth 2 times daily as needed for Anxiety 7 Active HYDROcodone-ibu profen (IBUDONE) 7.5-200 MG every 6 hours as needed 8 Active Flaxseed, Linseed, (FLAX SEEDS PO) Take by mouth once daily Active Carboxymeth-Gly cerin-Polysorb (REFRESH OPTIVE JUHI-3 OP) by Ophthalmic route 3 times daily as needed Active aspirin (ASPIRIN) 81 MG tablet Take 1 (one) tablet by mouth once daily Active losartan (COZAAR) 50 MG tablet Take 1 (one) tablet by mouth once daily 1 Active modafinil (PROVIGIL) 200 MG tablet Take 1 (one) tablet by mouth once daily as needed Active cyclobenzaprine (FLEXERIL) 5 MG tablet Take 1 (one) tablet by mouth once daily as needed Active gabapentin (NEURONTIN) 300 MG capsule Take 1 (one) capsule by mouth 2 times daily 2 Active metFORMIN ER 24hr (GLUCOPHAGE XR) 500 MG tablet Take 2 (two) tablets by mouth 2 times daily 2 Active [place]-3 1000 MG Take 2,000 mg by mouth once daily Active amLODIPine (Norvasc) 10 MG tablet Take 1 (one) tablet by mouth once daily Active diphenhydrAMINE (Benadryl Allergy) 25 MG capsule Take 1 (one) capsule by mouth nightly as needed for Itching Active fluticasone propionate (Flonase) 50 MCG/ACT nasal spray [place] 2 (two) sprays into each nostril as needed 3 Active pravastatin (Pravachol) 10 MG tablet Take 1 (one) tablet by mouth once daily 3 Active Flaxseed Oil (Linseed Oil) Take by mouth once daily Active colestipol (Colestid) 1 GM tablet Take 1 (one) tablet by mouth 2 times daily 60 tablet 5 4 Active Active Problems Problem Noted Date [...] Overview (09/26/2021): 11/23/2016 US: diffusely echogenic liver consistent with fatty liver 09/22/21 Fibroscan CAP 400, [...] neuropathy 09/19/2013 Thrombocytopenia 10/29/2012 Pre-diabetes Back pain Encounters Date Type Department Care Team Description 07/18/2024 Telephone [facility] - [address] [facility], [place] [address] Eladio Zheng, JOSEFINA Follow-up 06/03/2024 Orders Only [facility] - [facility] [place] [phone] Milena Gomez APRN-QUALITY CONTROL LEAD Other cirrhosis of liver from Last 3 Months Family History Medical History Relation Name Comments [...] at Not on file Legal 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 Gender Identity Not on file Sexual Orientation Not on file Last Filed Vital Signs Vital Sign Reading Time Taken Comments Blood Pressure 131/58 10/02/2023 2:57 PM CDT Pulse 64 10/02/2023 2:57 PM CDT Temperature 36.9 C (98.5 F) 10/02/2023 2:57 PM CDT Respiratory Rate 20 08/08/2022 2:56 PM CDT Oxygen Saturation 99% 10/02/2023 2:57 PM CDT Inhaled Oxygen Concentration - - Weight 93.3 kg (205 lb 9.6 oz) 10/02/2023 2:57 P M CDT Height 165.1 cm (5' 5 ) 10/02/2023 2:57 PM CDT Body Mass Index 34.21 10/02/2023 2:57 PM CDT Plan of Treatment Upcoming Encounters Date Type Department Care Team (Late st Contact Info) Description 08/08/2024 2:30 PM CDT Office Visit [facility] - GI [address] [place] [phone] Milena Gomez, TUGBOAT ENGINEER-QUALITY CONTROL LEAD [address] [place] [address] [place] [phone] Health Maintenance Due Date Last Done Comments COLOGUARD (AGES 45-75) - COLON CA SCREENING 1950 COLON MONITORING 1950 COLONOSCOPY - COLON CA SCREENING 1950 CT COLONOGRAPHY - COLON CA SCREENING 1950 Colorectal Cancer Screening 1950 FIT - COLON CA SCREENING 1950 FLEX SIG - COLON CA SCREENING 1950 MEDICARE AWV 12 MONTHS 1950 DTAP/TDAP/TD VACCINES (1 - Tdap) 1969 PNEUMOCOCCAL VACCINE 50+ (1 of 2 - PCV) 1969 ZOSTER VACCINE (1 of 2) 2000 HEPATITIS B VACCINE (1 of 3 - Risk 3-dose series) 2010 Respiratory Syncytial Virus (RSV) Vaccine Pt: or over 60 yrs (1 - Risk 60-74 years 1-dose series) 2010 COVID-19 VACCINE ( - season) 2023 DEPRESSION SCREENING 04/02/2024 INFLUENZA VACCINE (Season Ended) 2024 HEPATITIS C SCREENING Completed 09/22/2021 , 02/03/2019, 01/14/2018, Additional history exists HIB VACCINE Aged Out No longer eligi ble based on patient's age to complete this topic HPV VACCINE Aged Out No longer eligi ble based on patient's age to complete this topic MENINGOCOCCAL (Group B) VACCINE SHARED DECISION-MAKING Aged Out No longer eligible based on patient's age to complete this topic MENINGOCOCCAL GROUPS A/C/Y/W VACCINE Aged Out No longer eligible based [...] C Virus RNA IU/mL not detected IU/mL [facility] Hepatitis C Virus Log 10 not detected IU/mL [facility] Blood specimen (specimen) 10/09/2012 us Nisha [facility] - CHEMISTRY ORDERABLES nal Result [facility] [address] from Last 3 Months or Most Recently Relevant to Health Maintenance Insurance MEDICARE [facility] Address[facility] [address] [place] [address] [place] [address] Care Teams Desktop Support Associate Relationship Specialty Start Date End Date Júnior Daley MD [address] [place] [address] PCP - General 02/03/19
--- OUTSIDE RECORDS SUMMARY | 2024-08-08 08:03 | XMS_ITS | Referral Summary ---
Author Organization [facility] Address [address] [place] [address] Care Team Providers Care Heat Engineering Teacher Name Role Phone Júnior Dlaey MD Primary Care Provider Satya Andre OD Unavailable Encounters Date Type Department Care Team Description 07/16/2024 Telephone [facility] Cardiology [address] [place] [phone] Song Wilkerson MD 05/14/2024 Telephone [facility] Medical [facility] Cardiology [address] [place] [address] Song Wilkerson MD Med Refill from Last 3 Months Allergies Active Allergy [...] 2 (two) times a day 2 Active flaxseed oiL 1,000 mg capsule Take [...] mouth nightly 90 tablet 6 4 Active amLODIPine (NORVASC) 10 mg tablet Take 1 tablet by mouth once daily 90 tablet 1 5 Active pravastatin (PRAVACHOL) 10 mg tablet Take 1 tablet (10 mg total) by mouth nightly 90 tablet 1 5 Active pravastatin (PRAVACHOL) 10 mg tablet Take 1 tablet (10 mg total) by mouth nightly 3 07/17/19 25 Discontinu ed(Reorder ) Active Problems Problem Noted Date Diagnosed Date Angina pectoris, unstable 10/17/2023 Coronary artery disease of n ative artery of [place] heart with stable angina pectoris 10/17/2023 Combined forms of age-related cataract of both e yes 11/04/2019 Assessment & Plan (11/04/2019 3:07 PM CDT): ADL being met Observe RTC 1yr Trichiasis of eyelid of both eyes 01/07/2019 Assessment & Plan (11/11/2020 4:01 PM CDT): None seen on exam today Assessment & Plan (03/13/2019 4:39 PM SAND MOLDER): No lashes contacting cornea Assessment & Plan [...] capsules Assessment & Plan (05/06/2019 1:48 PM SAND MOLDER): - Feels symptoms are improved status post (s/p) Azithromycin - meibomian gland dysfunction (MGD) on exam - Continue refresh Kevin 3 OU q.i.d. and Warm water lid scrubs OU b.i.d. - Flaxseed oil p.o. 1000 mg b.i.d. RTC 6 mos Assessment & Plan (03/13/2019 4:44 PM SAND MOLDER): - Feels symptoms are improved but continues [...] Dry eye syndrome of both lacrimal glands 08/22/2 019 Assessment & Plan (03/13/2019 4:39 PM SAND MOLDER): Assessment & Plan (01/07/2019 3:31 PM CDT): [...] yr Assessment & Plan (05/06/2019 1:48 PM SAND MOLDER): Stable without recurrence status post superficial keratectomy, left eye (OS) 09/12/17 Good vision, both eyes (OU) Observation Assessment & Plan (03/13/2019 1:34 PM SAND MOLDER): Stable without recurrence status post superficial keratectomy, [...] mottling OD, wnl OS (FHx of AMD) Continue ATs prn Start AREDs RTC 1 year with DFE OU Assessment & Plan (02/12/2018 3:32 PM SAND MOLDER): Status post (s/p) superificial keratectomy left eye (OS) on 09/12/17 Doing well, healed at last visit. IOP good on LTX [place] QHS OS. Plan Ok to stop LTX [place] Start ATs prn RTC 6-9mo with DFE OU (FHx of AMD; nl DFE 07/2017) Assessment & Plan (12/11/2017 3:01 PM CDT): Status post (s/p) superificial keratectomy left eye (OS) on 09/12/17 Doing well, completely healed. Plan Taper off of PF 2x/day x month / 1x/day x 1mo, then stop Continue Lotemax at night until out RTC 1 year or earlier PRN Assessment & Plan (10/16/2017 5:16 PM CDT): Status post (s/p) superificial keratectomy left eye (OS) on 09/12/17 Doing well, epi defect healed, essentially completely healed. Plan Taper off of Prednisone 5x/day x2wks / 4x/nchc4wkz / 3x/day x 2wks / bid Lotemax at night until out RTC 2 months w/MRX Nuclear sclerosis of both eyes 02/28/2016 Assessment & Plan (11/04/2019 3:05 PM CDT): Observation - rec update Mrx with optometry. RTC 1 year or PRN Assessment & Plan (03/13/2019 1:34 PM SAND MOLDER): Not visually significant, observe for now. Assessment & Plan (01/07/2019 3:28 PM CDT): Not visually significant, observe for now. Assessment & Plan (08/13/2018 2:47 PM CDT): Not visually significant, observe for now. Assessment & Plan (02/12/2018 3:32 PM SAND MOLDER): Not visually significant, observe for now. Anterior [...] on file Legal Sex Male 12:38 AM SAND MOLDER Gender Identity Not on file Sexual Orientation Not on file Last Filed Vital Signs Vital Sign Reading Time Taken Comments Blood Pressure 136/56 02/20/2024 2:29 PM SAND MOLDER Pulse 75 02/20/2024 2:29 PM SAND MOLDER Temperature 36.7 C (98 F) 11/23/2023 8:10 AM CDT Respiratory Rate 18 11/23/2023 8:10 AM CDT Oxygen Saturation 95% 02/20/2024 2:29 PM SAND MOLDER Inhaled Oxygen Concentration - - Weight 91.2 kg (201 lb) 02/20/2024 2:29 PM SAND MOLDER Height 165.1 cm (5' 5 ) 02/20/2024 2:29 PM SAND MOLDER Body Mass Index 33.45 02/20/2024 2:29 PM SAND MOLDER Plan of Treatment Not on file Medical Devices Implanted Type Area Distributor Of Directories Device Identifier Shelf Expiration Date Model / Serial / Lot [employer] Surgery 3.0 X 30mm [place] [employer] Coronary Stent [id number] - [id number] Implanted:Qty: 1 on 11/23/2023 by Song Wilkerson MD at [facility] Medtronic Card Vasc Surgery 02/03/2026 [id number] / / [id number] Medtronic Card Vasc Surgery 4.0 X 26mm [place] Rx Coronary Stent [id number] - [id number] Implanted:Qty: 1 on 11/23/2023 by Song Wilkerson MD at [facility] Medtronic Card Vasc Surgery 10/23/2025 [id number] / / [id number] Procedures Procedure Name Priority Date/Time Associated Diagnosis [...] to Health Maintenance Insurance MEDICARE MEDICARE MEDICARE [facility] Care Teams Heat Engineering Teacher Relationship Specialty Start Date End Date Júnior Daley MD [address] [facility] [address] [place], [place] [phone] PCP - General Family Medicine 08/13/18 Satya Andre OD [address] [place], [place] [phone] Optometry 12/21/22
--- OUTSIDE RECORDS SUMMARY | 2024-08-08 08:03 | XMS_ITS | Clinical Summary ---
Author Organization [facility] [employer] Address [address] [place] [address] Care Team Providers Care Ophthalmic Photographer Name Role Phone Júnior Daley MD Primary Care Provider Satya Andre OD Unavailable [phone] Allergies Active Allergy Reactions Criticality Noted Date [...] artery disease of n ative artery of [place] heart with stable angina pectoris 10/17/2023 Combined forms of age-related cataract of both e yes 11/04/2019 Assessment & Plan (11/04/2019 3:07 PM CDT): ADL being met Observe RTC 1yr Trichiasis of eyelid of both eyes 01/07/2019 Assessment & Plan (11/11/2020 4:01 PM CDT): None seen on exam today Assessment & Plan (03/13/2019 4:39 PM SUPERVISOR COIL SPRINGS): No lashes contacting cornea Assessment & Plan [...] capsules Assessment & Plan (05/06/2019 1:48 PM SUPERVISOR COIL SPRINGS): - Feels symptoms are improved status post (s/p) Azithromycin - meibomian gland dysfunction (MGD) on exam - Continue refresh Kevin 3 OU q.i.d. and Warm water lid scrubs OU b.i.d. - Flaxseed oil p.o. 1000 mg b.i.d. RTC 6 mos Assessment & Plan (03/13/2019 4:44 PM SUPERVISOR [employer]IL [place]INGS): - Feels symptoms are improved but continues [...] 019 Assessment & Plan (03/13/2019 4:39 PM SUPERVISOR COIL SPRINGS): Assessment & Plan (01/07/2019 3:31 PM CDT): [...] yr Assessment & Plan (05/06/2019 1:48 PM SUPERVISOR COIL SPRINGS): Stable without recurrence status post superficial keratectomy, left eye (OS) 09/12/17 Good vision, both eyes (OU) Observation Assessment & Plan (03/13/2019 1:34 PM SUPERVISOR [place] [place]INGS): Stable without recurrence status post superficial keratectomy, [...] OU Assessment & Plan (02/12/2018 3:32 PM SUPERVISOR COIL SPRINGS): Status post (s/p) superificial keratectomy left eye [...] Taper off of Prednisone 5x/day x2wks / 4x/whxd4xmi / 3x/day x 2wks / bid Lotemax at night until out RTC 2 months w/MRX Nuclear sclerosis of both eyes 02/28/2016 Assessment & Plan (11/04/2019 3:05 PM CDT): Observation - rec update Mrx with optometry. RTC 1 year or PRN Assessment & Plan (03/13/2019 1:34 PM SUPERVISOR [place]): Not visually significant, observe for now. Assessment & Plan (01/07/2019 3:28 PM CDT): Not visually significant, observe for now. Assessment & Plan (08/13/2018 2:47 PM CDT): Not visually significant, observe for now. Assessment & Plan (02/12/2018 3:32 PM SUPERVISOR [place] [place]): Not visually significant, observe for now. 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 Encounters Date Type Department Care Team Description 07/16/2024 Telephone [facility] Cardiology [address] [place] [address] Song Wilkerson MD 05/14/2024 Telephone [facility] Cardiology [address] [place] [address] Song Wilkerson MD Med Refill from Last 3 Months Surgical History Surgery [...] exertion) Type 2 diabetes mellitus (HCC) Neuropathy Family History Medical History Relation Name Comments [...] on file Legal Sex Male 12:38 AM SUPERVISOR COIL SPRINGS Gender Identity Not on file Sexual Orientation Not on file Obstetrics History Last Filed Vital Signs Vital Sign Reading Time Taken Comments Blood Pressure 136/56 02/20/2024 2:29 PM SUPERVISOR COIL [place]INGS Pulse 75 02/20/2024 2:29 PM SUPERVISOR [employer]IL [place]INGS Temperature 36.7 C (98 F) 11/23/2023 8:10 AM CDT Respiratory Rate 18 11/23/2023 8:10 AM CDT Oxygen Saturation 95% 02/20/2024 2:29 PM SUPERVISOR COIL [place]INGS Inhaled Oxygen Concentration - - Weight 91.2 kg (201 lb) 02/20/2024 2:29 PM SUPERVISOR [employer]IL [place]INGS Height 165.1 cm (5' 5 ) 02/20/2024 2:29 PM SUPERVISOR COIL SPRINGS Body Mass Index 33.45 02/20/2024 2:29 PM SUPERVISOR COIL [place]INGS Plan of Treatment Health Maintenance Due Date Last Done Comments Albumin Creatinine Ratio, Urine 1950 Colon Cancer Screening-Colonoscopy 1950 Depression Screening 1950 Hemoglobin A1C 1950 eGFR 1950 Foot Exam 1950 DTaP/Tdap/Td Vaccine (1 - Tdap) 1961 Hepatitis B Screening 1968 Zoster Vaccine (1 of 2) 2000 Well Visit 65+ 07/29/2015 Dilated Eye Exam 08/14/2019 08/13/2018 Lipid Panel 10/16/2024 10/17/2023, 03/22/2022 Fall Risk Assessment 11/22/2024 11/23/2023 Influenza Vaccine (Season Ended) 2024 12/08/2018, 01/07/2018, 01/09/2017, Additional history exists Hepatitis C Screening Completed 05/29/2013 Pneumococcal vaccine 65+ Completed 02/20/2018, 12/31 Medical Devices Implanted Type Area Fruit Or Nut Picker Device Identifier Shelf Expiration Date Model / Serial / Lot Medtronic Card Vasc Surgery 3.0 X 30mm [place] Rx Coronary Stent [id number] - [id number] Implanted:Qty: 1 on 11/23/2023 by Song Wilkerson MD at [facility] Med[employer]onic Card Vasc Surgery 02/03/2026 [id number] / / [id number] Medtronic Card Vasc Surgery 4.0 X 26mm [place] Rx Coronary Stent [id number] - [id number] Implanted:Qty: 1 on 11/23/2023 by Song Wilkerson MD at [facility] Medtronic Card Vasc Surgery 10/23/2025 [id number] UX / / [id number] Procedures Procedure Name Priority Date/Time Associated Diagnosis [...] to Health Maintenance Insurance MEDICARE MEDICARE MEDICARE [facility] Care Teams Ophthalmic Photographer Relationship Specialty Start Date End Date Júnior Daley MD [address] [place] [address] PCP - General Family Medicine 08/13/18 Satya Andre OD [address] [place] [address] Optometry 12/21/22
--- OUTSIDE RECORDS SUMMARY | 2024-08-08 09:10 | XMS_ITS | Referral Summary ---
Author Organization [facility] Address [address] [place] [address] Care Team Providers Care Sand Plant Attendant Name Role Phone Júnior Daley MD Primary Care Provider Satya Andre OD Unavailable Encounters Date Type Department Care Team Description 07/16/2024 Telephone [facility] Medical Group Cardiology [address] [place] [address] Song Wilkerson MD 05/14/2024 Telephone [facility] Medical [facility] Cardiology [address] [place] [address] Song Wilkerson MD Med Refill [...] artery disease of n ative artery of [place] heart with stable angina pectoris 10/17/2023 Combined forms of age-related cataract of both e yes 11/04/2019 Assessment & Plan (11/04/2019 3:07 PM CDT): ADL being met Observe RTC 1yr Trichiasis of eyelid of both eyes 01/07/2019 Assessment & Plan (11/11/2020 4:01 PM CDT): None seen on exam today Assessment & Plan (03/13/2019 4:39 PM WATERMASTER): No lashes contacting cornea Assessment & Plan [...] capsules Assessment & Plan (05/06/2019 1:48 PM WATERMASTER): - Feels symptoms are improved status post (s/p) Azithromycin - meibomian gland dysfunction (MGD) on exam - Continue refresh Kevin 3 OU q.i.d. and Warm water lid scrubs OU b.i.d. - Flaxseed oil p.o. 1000 mg b.i.d. RTC 6 mos Assessment & Plan (03/13/2019 4:44 PM WATERMASTER): - Feels symptoms are improved but continues [...] 019 Assessment & Plan (03/13/2019 4:39 PM WATERMASTER): Assessment & Plan (01/07/2019 3:31 PM CDT): [...] yr Assessment & Plan (05/06/2019 1:48 PM WATERMASTER): Stable without recurrence status post superficial keratectomy, left eye (OS) 09/12/17 Good vision, both eyes (OU) Observation Assessment & Plan (03/13/2019 1:34 PM WATERMASTER): Stable without recurrence status post superficial keratectomy, [...] OU Assessment & Plan (02/12/2018 3:32 PM WATERMASTER): Status post (s/p) superificial keratectomy left eye [...] Taper off of Prednisone 5x/day x2wks / 4x/pubd6xyx / 3x/day x 2wks / bid Lotemax at night until out RTC 2 months w/MRX Nuclear sclerosis of both eyes 02/28/2016 Assessment & Plan (11/04/2019 3:05 PM CDT): Observation - rec update Mrx with optometry. RTC 1 year or PRN Assessment & Plan (03/13/2019 1:34 PM WATERMASTER): Not visually significant, observe for now. Assessment & Plan (01/07/2019 3:28 PM CDT): Not visually significant, observe for now. Assessment & Plan (08/13/2018 2:47 PM CDT): Not visually significant, observe for now. Assessment & Plan (02/12/2018 3:32 PM WATERMASTER): Not visually significant, observe for now. Anterior [...] on file Legal Sex Male 12:38 AM WATERMASTER Gender Identity Not on file Sexual Orientation Not on file Last Filed Vital Signs Vital Sign Reading Time Taken Comments Blood Pressure 136/56 02/20/2024 2:29 PM WATERMASTER Pulse 75 02/20/2024 2:29 PM WATERMASTER Temperature 36.7 C (98 F) 11/23/2023 8:10 AM CDT Respiratory Rate 18 11/23/2023 8:10 AM CDT Oxygen Saturation 95% 02/20/2024 2:29 PM WATERMASTER Inhaled Oxygen Concentration - - Weight 91.2 kg (201 lb) 02/20/2024 2:29 PM WATERMASTER Height 165.1 cm (5' 5 ) 02/20/2024 2:29 PM WATERMASTER Body Mass Index 33.45 02/20/2024 2:29 PM WATERMASTER Plan of Treatment Not on file Medical Devices Implanted Type Area Incident Handler Device Identifier Shelf Expiration Date Model / Serial / Lot [employer] Surgery 3.0 X 30mm [place] Rx Coronary Stent [id number] - [id number] Implanted:Qty: 1 on 11/23/2023 by Song Wilkerson MD at [facility] Medtronic Card Vasc Surgery 02/03/2026 [id number] / / [id number] Medtronic Card Vasc Surgery 4.0 X 26mm [place] [employer] Coronary Stent [id number] - [id number] Implanted:Qty: 1 on 11/23/2023 by Song Wilkerson MD at [facility] Medtronic Card Vasc Surgery 10/23/2025 [id number] / / [id number] Procedures Procedure Name Priority Date/Time Associated Diagnosis [...] to Health Maintenance Insurance MEDICARE MEDICARE MEDICARE [facility] Care Teams Sand Plant Attendant Relationship Specialty Start Date End Date Júnior Daley MD [address] [facility] [address] [place], [place] [phone] PCP - General Family Medicine 08/13/18 Staya Andre OD [address] [place], [place] [phone] Optometry 12/21/22
--- OUTSIDE RECORDS SUMMARY | 2024-08-08 09:10 | XMS_ITS | Continuity of Care Document ---
Author Organization [facility] Address [address] [place] [address] [place] [address] Phone Care Team Providers Care Sequins Slinger Name Role Phone Judy Montano Unavailable Unavailable Procedures Procedure Date Eye Exam, New Patient Refraction Advance Directives Directive Yes / No Effective Date File Name No Information Encounters Encounter Description Practice Location Reason(s) For Visit Diagnoses Date Provider Providers Copied on Encounter [facility], [address], [place], [place], [id number], [place] tel:[phone] [facility] No Information 8 Charmaine Kim. [address] , [address] [facility], [place], [address], [place]. tel:[phone] Referring Provider: Sobia Silva MD, [address] [facility] [place], [address]. tel:[phone] Family History Family Member Type Diagnosis Age At Onset No Information Payers Payer name Insurance type Covered democrat ID Authoriza tion(s) [facility] Commercial CI [id number] Social History Type Description Quantity Date Captured [...]
--- OUTSIDE RECORDS SUMMARY | 2024-08-08 09:10 | XMS_ITS | Clinical Summary ---
Author Organization [facility] Address [address] [place] [address] Care Team Providers Care Water Quality Tester Name Role Phone Júnior Daley MD Primary Care Provider Source Comments [facility],non-owned Affiliates and Associated Physician Practices is amultiple site organization consisting of ambulatory clinics and hospital sitesin [place], [place], [place] and [place]. This disclosure is being madepursuant to the Care Everywhere program and may not contain all information available regarding this patient. Last updated 17.[facility] Allergies Active Allergy Reactions Criticality Noted [...] by mouth 2 times daily 2 Active [place]-3 1000 MG Take 2,000 mg by mouth once daily Active amLODIPine (Norvasc) 10 MG tablet Take 1 (one) tablet by mouth once daily Active diphenhydrAMINE (Benadryl Allergy) 25 MG capsule Take 1 (one) capsule by mouth nightly as needed for Itching Active fluticasone propionate (Flonase) 50 MCG/ACT nasal spray [place] 2 (two) sprays into each nostril as [...] Description 07/18/2024 Telephone [facility] - [address] [facility], [place] [address] Eladio Zheng, JOSEFINA Follow-up 06/03/2024 Orders Only [facility] - [facility] [place] [id number] Milena Gomez APRN-ROLL ON MAN Other cirrhosis of liver from Last 3 [...] on file Legal Sex Male 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 Gender Identity Not on file Sexual Orientation [...] Visit [facility] [address] [place] [id number] Milena Gomez, DISPENSING AND MEASURING OPTICIAN-ROLL ON MAN [address] [place] [address] [place] [phone] Health Maintenance Due Date Last Done Comments [...] C Virus RNA IU/mL not detected IU/mL [facility] Hepatitis C Virus Log 10 not detected IU/mL [facility] Blood specimen (specimen) 10/09/2012 us [facility] - CHEMISTRY ORDERABLES nal Result [facility] [address] from Last 3 Months or Most Recently Relevant to Health Maintenance Insurance MEDICARE [facility] MEDICARE Care Teams Water Quality Tester Relationship Specialty Start Date End Date Júnior Daley MD [address] [place] [id number] PCP - General 02/03/19
--- OUTSIDE RECORDS SUMMARY | 2024-08-08 09:10 | XMS_ITS | Clinical Summary ---
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 10/17/2023 Combined forms of age-related cataract of both e yes 11/04/2019 Assessment & Plan (11/04/2019 3:07 PM CDT): ADL being met Observe RTC 1yr Trichiasis of eyelid of both eyes 01/07/2019 Assessment & Plan (11/11/2020 4:01 PM CDT): None seen on exam today Assessment & Plan (03/13/2019 4:39 PM CONCRETE BLOCK PLANT SUPERVISOR): No lashes contacting cornea Assessment & Plan [...] capsules Assessment & Plan (05/06/2019 1:48 PM CONCRETE BLOCK PLANT SUPERVISOR): - Feels symptoms are improved status post (s/p) Azithromycin - meibomian gland dysfunction (MGD) on exam - Continue refresh Kevin 3 OU q.i.d. and Warm water lid scrubs OU b.i.d. - Flaxseed oil p.o. 1000 mg b.i.d. RTC 6 mos Assessment & Plan (03/13/2019 4:44 PM CONCRETE BLOCK PLANT SUPERVISOR): - Feels symptoms are improved but continues [...] 019 Assessment & Plan (03/13/2019 4:39 PM CONCRETE BLOCK PLANT SUPERVISOR): Assessment & Plan (01/07/2019 3:31 PM CDT): [...] yr Assessment & Plan (05/06/2019 1:48 PM CONCRETE BLOCK PLANT SUPERVISOR): Stable without recurrence status post superficial keratectomy, left eye (OS) 09/12/17 Good vision, both eyes (OU) Observation Assessment & Plan (03/13/2019 1:34 PM CONCRETE BLOCK PLANT SUPERVISOR): Stable without recurrence status post superficial keratectomy, [...] OU Assessment & Plan (02/12/2018 3:32 PM CONCRETE BLOCK PLANT SUPERVISOR): Status post (s/p) superificial keratectomy left eye [...] Taper off of Prednisone 5x/day x2wks / 4x/erlb0zxf / 3x/day x 2wks / bid Lotemax at night until out RTC 2 months w/MRX Nuclear sclerosis of both eyes 02/28/2016 Assessment & Plan (11/04/2019 3:05 PM CDT): Observation - rec update Mrx with optometry. RTC 1 year or PRN Assessment & Plan (03/13/2019 1:34 PM CONCRETE BLOCK PLANT SUPERVISOR): Not visually significant, observe for now. Assessment & Plan (01/07/2019 3:28 PM CDT): Not visually significant, observe for now. Assessment & Plan (08/13/2018 2:47 PM CDT): Not visually significant, observe for now. Assessment & Plan (02/12/2018 3:32 PM CONCRETE BLOCK PLANT SUPERVISOR): Not visually significant, observe for now. 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 Encounters Date Type Department Care Team Description 07/16/2024 Telephone [facility] Cardiology [address] [place] [address] Song Wilkerson MD 05/14/2024 Telephone [facility] Cardiology [address] [place] [address] Song Wilkerson MD Med Refill [...] on file Legal Sex Male 12:38 AM CONCRETE BLOCK PLANT SUPERVISOR Gender Identity Not on file Sexual Orientation Not on file Obstetrics History Last Filed Vital Signs Vital Sign Reading Time Taken Comments Blood Pressure 136/56 02/20/2024 2:29 PM CONCRETE BLOCK PLANT SUPERVISOR Pulse 75 02/20/2024 2:29 PM CONCRETE BLOCK PLANT SUPERVISOR Temperature 36.7 C (98 F) 11/23/2023 8:10 AM CDT Respiratory Rate 18 11/23/2023 8:10 AM CDT Oxygen Saturation 95% 02/20/2024 2:29 PM CONCRETE BLOCK PLANT SUPERVISOR Inhaled Oxygen Concentration - - Weight 91.2 kg (201 lb) 02/20/2024 2:29 PM CONCRETE BLOCK PLANT SUPERVISOR Height 165.1 cm (5' 5 ) 02/20/2024 2:29 PM CONCRETE BLOCK PLANT SUPERVISOR Body Mass Index 33.45 02/20/2024 2:29 PM CONCRETE BLOCK PLANT SUPERVISOR Plan of Treatment Health Maintenance Due Date [...] 02/20/2018, 12/31 Medical Devices Implanted Type Area Drafter (Cad) Electronic Device Identifier Shelf Expiration Date Model / Serial / Lot Medtronic Card Vasc Surgery 3.0 X 30mm [place] Rx Coronary Stent [id number] - [id number] Implanted:Qty: 1 on 11/23/2023 by Song Wilkerson MD at [facility] Medtronic Card Vasc Surgery 02/03/2026 [id number] / / [id number] Medtronic Card Vasc Surgery 4.0 X 26mm [place] Rx Coronary Stent [id number] - [id number] Implanted:Qty: 1 on 11/23/2023 by Song Wilkerson MD at [facility] Medtronic Card Vasc Surgery 10/23/2025 [id number] / / [id number] Procedures Procedure Name Priority Date/Time Associated Diagnosis [...] to Health Maintenance Insurance MEDICARE MEDICARE MEDICARE [facility] Care Teams Services Account Manager Relationship Specialty Start Date End Date Júnior Daley MD [address] [place] [address] PCP - General Family Medicine 08/13/18 Satya Andre OD [facility] [place] [address] Optometry 12/21/22
[2024-08-08 10:02] LABS: Basophils Absolute Auto 0.1 K/mm3 (0.0-0.1); Basophils Percent Auto 1.2 % (0.2-1.2); Eosinophils Absolute Auto 0.2 K/mm3 (0-0.3); Hematocrit 43.3 % (42.0-52.0); Hemoglobin 14.6 g/dL (14.0-18.0); Immature Granulocyte Absolute 0.07 K/mm3 (0.00-0.031); Immature Platelet Fraction Pct 3.6 % (0.9-11.2); Lymphocytes Absolute Auto 1.69 K/mm3 (0.9-3.2); Mean Corpuscular HGB Conc 33.7 g/dl (32-36); Mean Platelet Volume 10.5 fl (7.4-10.4); Monocytes Absolute Auto 0.5 K/mm3 (0.1-0.6); Monocytes Percent Auto 7.5 % (2.6-8.5); Neutrophils Absolute Auto 4.2 K/mm3 (1.3-6.7); Neutrophils Percent Auto 62.3 % (45.5-73.1); Platelet Count Result 142 k/mm3 (150-375); Red Blood Count 4.56 M/mm3 (4.6-6.20); White Blood Count 6.8 K/mm3 (4.5-10.0)
[2024-08-08 10:11] LABS: Iron 105 ug/dL (49-181)
[2024-08-08 10:14] LABS: Alanine Aminotransferase 23 U/L (6-50); Albumin Level 4.4 g/dL (3.5-5.1); Alkaline Phosphatase 67 U/L (38-126); Aspartate Amino Transferase 28 U/L (17-59); INR 0.9; Prothrombin Time 13.1 Seconds (11.1-14.7)
[2024-08-08 10:19] LABS: Hemoglobin A1C 6.6 % (<5.7)
[2024-08-08 10:21] LABS: Alanine Aminotransferase 23 U/L (6-50); Albumin Level 4.4 g/dL (3.5-5.1); Alkaline Phosphatase 65 U/L (38-126); Anion Gap 8 mmol/L (4-12); Aspartate Amino Transferase 26 U/L (17-59); Blood Urea Nitrogen 9 mg/dL (9-20); Carbon Dioxide 27 mmol/L (22-30); Chloride 106 mmol/L (98-107); Estimated Glomerular Filt Rate > 60; Glucose 167 mg/dL (65-110); Percent Iron Saturation 34 % (20-50); Potassium 3.6 mmol/L (3.4-5.0); Sodium 141 mmol/L (137-145)
[2024-08-11 06:34] LABS: Alpha Fetoprotein Tumor Marker 2.4 ng/mL (<6.1)
== END 2024-08-08 09:08 | disposition home or self-care (01) ==
PROVIDERS: PCP Family Medicine; Referring Provider Nurse Practitioner Family
DX: K74.69 Other cirrhosis of liver (principal); Z86.19 Personal history of other infectious and parasitic diseases; E11.9 Type 2 diabetes mellitus without complications
CPT/HCPCS: 36415; 76705; 80053; 80076; 82105; 82728; 83036; 83540; 83550; 85025; 85055; 85610

== ENCOUNTER 2024-12-31 16:13 | Outpatient (CLI) | payer MEDICARE, SELFPAY ==
--- OUTSIDE RECORDS SUMMARY | 2007-06-11 11:23 | XMS_ITS | Continuity of Care Document ---
Author Organization [facility] Address [address] [place] [address] [place] [address] Phone Care Team Providers Care Manufacturing Quality Inspector Name Role Phone Judy Montano Unavailable Unavailable Procedures Procedure Date Eye Exam, New Patient Refraction Advance Directives Directive Yes / No Effective Date File Name No Information Encounters Encounter Description Practice Location Reason(s) For Visit Diagnoses Date Provider Providers Copied on Encounter [facility], [address], [place], [place], [id number], [place] tel:[phone] [facility] No Information 8 Charmaine Kim. [address] , [address] [facility], [place], [address], [place]. tel:[phone] Referring Provider: Sobia Silva MD, [address] [facility] [place], [address]. tel:[phone] Family History Family Member Type Diagnosis Age At Onset No Information Payers Payer name Insurance type Covered libertarian ID Authoriza tion(s) [facility] Commercial CI [id number] Social History Type Description Quantity Date Captured Comments Sex Male Smoking Status No Information Chief Complaint And Reason For Visit No Information Reason For Referral Reason For Referral No Information History Of Present Illness Encounter Date Complaint History Of Prese nt Illness No Information Functional Status Date Functional Assessmen t No Information Instructions Date Instruction Additional Infor mation No Information Assessments Type Assessment Date No Information Patient Care Teams Name Effective Dates (start - stop) Status Members No Information
--- NOTE | ~2024-12-31 | XR_ITS ---
EXAMINATION: XR wrist LT min 3V, 12/31/2024 16:23 CDT HISTORY: M25.532 - Pain in left wrist COMPARISON: No comparisons available. Findings: No acute fracture or malalignment. No significant degenerative changes. Soft tissues unremarkable. Impression: No acute fracture or malalignment. Reviewed, dictated and finalized at location P. Impression: No acute fracture or malalignment.
--- OUTSIDE RECORDS SUMMARY | 2024-12-31 16:17 | XMS_ITS | Clinical Summary ---
Author Organization [facility] Address [address] [place] [address] Care Team Providers Care Coat Operator Insulator Name Role Phone Júnior Daley MD Primary Care Provider Satya Andre OD Unavailable [phone] Allergies Active Allergy Reactions Criticality Noted Date Comments Adhesive Other (See comments),Rash Medium 09/05/2017 Blisters Adhesive Tape-Silicones Rash Medium 09/05/2017 Latex Rash Medium 01/08/2017 blisters Medications modafiniL (PROVIGIL) 200 mg tabletIndicati ons:Narcolepsy Syndrome,Sleep iness Due To Obstructive Sleep Apnea,morning PRN Take 1 tablet (200 mg total) by mouth daily as needed Active HYDROcodone-ib uprofen (VICOPROFEN) 7.5-200 mg per tabletIndicati ons:Pain Take 1 tablet by mouth every 12 (twelve) hours as needed for pain Active Contour Next Test Strips strip USE TO TEST EVERY MORNING 11/09/19 22 Active gabapentin (NEURONTIN) 300 mg capsule Take 1 capsule (300 mg total) by mouth nightly 12/09/19 22 Active metFORMIN XR (GLUCOPHAGE XR) 500 mg 24 hr tablet Take 1 tablet (500 mg total) by mouth 2 (two) times a day 11/02/19 22 Active flaxseed oiL 1,000 mg capsule Take 1 capsule (1,000 mg total) by mouth daily Active colestipoL (COLESTID) 1 gram tablet Take 1 tablet (1 g total) by mouth as directed Take 2-3 times a week Active losartan (COZAAR) 100 mg tablet Take 1 tablet (100 mg total) by mouth nightly 90 tablet 6 02/20/20 24 Active Additional Information Patient taking differently: 50 mgoral Nightly, Reported on 12/10/2024 amLODIPine (NORVASC) 10 mg tablet Take 1 tablet by mouth once daily 90 tablet 09/23/19 25 Active glipiZIDE (GLUCOTROL) 5 mg tablet Take 1 tablet (5 mg total) by mouth daily 10/12/19 25 Active tamsulosin (FLOMAX) 0.4 mg extended release capsule Take 1 capsule (0.4 mg total) by mouth nightly 10/21/19 25 Active cyclobenzaprin e (FLEXERIL) 5 mg tablet Take 1 tablet (5 mg total) by mouth 3 (three) times a day as needed for muscle spasms Active rosuvastatin (CRESTOR) 40 mg tablet Take 1 tablet (40 mg total) by mouth nightly 90 tablet 6 12/11/19 25 Active clopidogreL (PLAVIX) 75 mg tablet Take 1 tablet (75 mg total) by mouth daily 90 tablet 6 12/11/19 25 Active aspirin 81 mg enteric coated tablet Take 1 tablet (81 mg total) by mouth daily 02/28/20 16 025 Discontinued(T herapy completed) pravastatin (PRAVACHOL) 10 mg tablet Take 1 tablet (10 mg total) by mouth nightly 90 tablet 1 07/17/19 25 025 Discontinued(A lternate therapy) clopidogreL (PLAVIX) 75 mg tablet Take 1 tablet by mouth once daily 90 tablet 10/11/19 25 025 Discontinued Active Problems Problem Noted Date Diagnosed Date Angina pectoris, unstable 10/17/2023 Coronary artery disease of n ative artery of [place] heart with stable angina pectoris 10/17/2023 Combined forms of age-related cataract of both e yes 11/04/2019 Assessment & Plan (11/04/2019 3:07 PM CDT): ADL being met Observe RTC 1yr Trichiasis of eyelid of both eyes 01/07/2019 Assessment & Plan (11/11/2020 4:01 PM CDT): None seen on exam today Assessment & Plan (03/13/2019 4:39 PM SHEET ROCK INSTALLER): No lashes contacting cornea Assessment & Plan [...] capsules Assessment & Plan (05/06/2019 1:48 PM SHEET ROCK INSTALLER): - Feels symptoms are improved status post (s/p) Azithromycin - meibomian gland dysfunction (MGD) on exam - Continue refresh Kevin 3 OU q.i.d. and Warm water lid scrubs OU b.i.d. - Flaxseed oil p.o. 1000 mg b.i.d. RTC 6 mos Assessment & Plan (03/13/2019 4:44 PM SHEET ROCK INSTALLER): - Feels symptoms are improved but continues [...] 019 Assessment & Plan (03/13/2019 4:39 PM SHEET ROCK INSTALLER): Assessment & Plan (01/07/2019 3:31 PM CDT): [...] yr Assessment & Plan (05/06/2019 1:48 PM SHEET ROCK INSTALLER): Stable without recurrence status post superficial keratectomy, left eye (OS) 09/12/17 Good vision, both eyes (OU) Observation Assessment & Plan (03/13/2019 1:34 PM SHEET ROCK INSTALLER): Stable without recurrence status post superficial keratectomy, left eye (OS) 09/12/17 Good vision, both eyes (OU) Observation Assessment & Plan (01/07/2019 3:28 PM CDT): Stable without recurrence status post superficial keratectomy, left eye (OS) 18 Good vision, both eyes (OU) Observation Assessment [...] OU Assessment & Plan (02/12/2018 3:32 PM SHEET ROCK INSTALLER): Status post (s/p) superificial keratectomy left eye [...] Taper off of Prednisone 5x/day x2wks / 4x/dttz2yen / 3x/day x 2wks / bid Lotemax at night until out RTC 2 months w/MRX Nuclear sclerosis of both eyes 02/28/2016 Assessment & Plan (11/04/2019 3:05 PM CDT): Observation - rec update Mrx with optometry. RTC 1 year or PRN Assessment & Plan (03/13/2019 1:34 PM SHEET ROCK INSTALLER): Not visually significant, observe for now. Assessment & Plan (01/07/2019 3:28 PM CDT): Not visually significant, observe for now. Assessment & Plan (08/13/2018 2:47 PM CDT): Not visually significant, observe for now. Assessment & Plan (02/12/2018 3:32 PM SHEET ROCK INSTALLER): Not visually significant, observe for now. 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..] (dyspnea on exertion) Type 2 diabetes mellitus Neuropathy Family History Medical History Relation Name [...] on file Legal Sex Male 12:38 AM SHEET ROCK INSTALLER Gender Identity Not on file Sexual Orientation Not on file Obstetrics History Last Filed Vital Signs Vital Sign Reading Time Taken Comments Blood Pressure 104/60 12/10/2024 12:04 PM CDT Pulse 70 12/10/2024 12:04 PM CDT Temperature 36.7 C (98 F) 11/23/2023 8:10 AM CDT Respiratory Rate 18 11/23/2023 8:10 AM CDT Oxygen Saturation 96% 12/10/2024 12:04 PM CDT Inhaled Oxygen Concentration - - Weight 90.7 kg (200 lb) 12/10/2024 12:04 PM CDT Height 165.1 cm (5' 5) 12/10/2024 12:04 PM CDT Body Mass Index 33.28 12/10/2024 12:04 PM CDT Plan of Treatment Health Maintenance Due Date Last Done Comments Albumin Creatinine Ratio, Urine 1950 Colon Cancer Screening-Colonoscopy 1950 Depression Screening 1950 Hemoglobin A1C 1950 eGFR 1950 Foot Exam 1950 DTaP/Tdap/Td Vaccine (1 - Tdap) 1961 Hepatitis B Screening 1968 Zoster Vaccine (1 of 2) 2000 Well Visit 65+ 07/29/2015 Dilated Eye Exam 08/14/2019 08/13/2018 Fall Risk Assessment 11/22/2024 11/23/2023 Influenza Vaccine (#1) 2024 9, 01/07/2018, 01/09/2017, Additional history exists Lipid Panel 12/10/2025 12/10/2024, 07/1 10/2023, 03/22/2022 Hepatitis C Screening Completed 05/29/2013 Pneumococcal vaccine 65+ Completed 02/20/2018, 12/31 Medical Devices Implanted Type Area Zoo Keeper Device Identifier Shelf Expiration Date Model / Serial / Lot Medtronic [facility] Vas Surgery 3.0 X 30mm [place] Rx Coronary Stent [id number] - [id number] Implanted:Qty: 1 on 11/23/2023 by Song Wilkerson MD at [facility] Medtronic [facility] Vasc Surgery 02/03/2026 [id number] / / [id number] Medtronic [facility] Surgery 4.0 X 26mm [place] Rx Coronary Stent [id number] - [id number] Implanted:Qty: 1 on 11/23/2023 by Song Wilkerson MD at [facility] Vasc Surgery 10/23/2025 [id number] / / [id number] Procedures Procedure Name Priority Date/Time Associated Diagnosis Comments POCT LIPID PANEL Routine 12/10/2024 11:5 7 AM CDT Coronary artery disease of [place] artery of [place] heart with stable angina pectoris from Last 3 Months Results * (ABNORMAL) POCT lipid panel (12/10/2024 11:57 AM CDT) Cholesterol, POC 135 <200 MG/DL HDL, POC 35(A) >=40 mg/dL Triglycerides, POC 118 <=149 mg/dL LDL Cholesterol POC 76 <=129 mg/dL Chol/HDL Ratio, POC 2.2 NONE Non-HDL Cholesterol, POC 100 NONE mg/dL Cholesterol Total, POC 135 30 - 199 mg/dL Capillary blood 12/10/2024 1 1:57 AM CDT Song Wilkerson MD POINT OF CARE TEST ORDERABLES Fi nal Result from Last 3 Months Insurance MEDICARE [facility] MEDICARE SUPPLEMENT Member Subscriber Plan / Payer (Ef fective 2023-Present) Name:Kush Chaparro Anyi Relation to Subscriber:Self Name:Kush Chaparro Payer ID:[id number] Group ID:[id number] Type:COMMERCIAL Address: [facility] [id number] [place] [id number] Care Teams Coat Operator Insulator Relationship Specialty Start Date End Date Júnior Daley MD [address] [place], [place] [id number] PCP - General Family Medicine 08/13/18 Satya Andre OD [address] [facility] [place] [address] Optometry 12/21/22
--- OUTSIDE RECORDS SUMMARY | 2024-12-31 16:17 | XMS_ITS | Clinical Summary ---
Author Organization [facility] Address [address] [place] [address] Care Team Providers Care Pourer Bull Ladle Name Role Phone Júnior Daley MD Primary Care Provider [phone] Source Comments [facility],non-owned Affiliates and Associated Physician Practices is amultiple site organization consisting of ambulatory clinics and hospital sitesin [place], [place], [place] and [place]. This disclosure is being madepursuant to the Care Everywhere program and may not contain all information available regarding this patient. Last updated 17.[facility] Allergies Active Allergy Reactions Criticality Noted Date [...] by mouth 2 times daily 2 Active [place]-3 1000 MG Take 2,000 mg by mouth once daily Active amLODIPine (Norvasc) 10 MG tablet Take 1 (one) tablet by mouth once daily Active diphenhydrAMINE (Benadryl Allergy) 25 MG capsule Take 1 (one) capsule by mouth nightly as needed for Itching Active fluticasone propionate (Flonase) 50 MCG/ACT nasal spray [place] 2 (two) sprays into each nostril as [...] on file Legal Sex Male 5:25 PM BRAND ATTENDANT Gender Identity Not on file Sexual Orientation [...] P M CDT Height 165.1 cm (5' 5) 10/02/2023 2:57 PM CDT Body Mass Index [...] - Risk 60-74 years 1-dose series) 2010 DEPRESSION SCREENING 04/02/2024 COVID-19 VACCINE ( season) 2024 INFLUENZA VACCINE (#1) 2024 HEPATITIS C SCREENING Completed 09/22/2021 , [...] C Virus RNA IU/mL not detected IU/mL [facility] Hepatitis C Virus Log 10 not detected IU/mL [facility] Blood specimen (specimen) 10/09/2012 us [facility] - CHEMISTRY ORDERABLES Fi nal Result [address] from Last 3 Months or Most Recently Relevant to Health Maintenance Insurance MEDICARE [facility] MEDICARE Care Teams Pourer Bull Ladle Relationship Specialty Start Date End Date Júnior Daley MD [address] [place] [address] PCP - General 02/03/19
[2024-12-31 17:03] LABS: Alanine Aminotransferase 23 U/L (6-50); Albumin Level 4.5 g/dL (3.5-5.1); Alkaline Phosphatase 68 U/L (38-126); Anion Gap 11 mmol/L (4-12); Aspartate Amino Transferase 26 U/L (17-59); Bilirubin,Total 0.8 mg/dL (0.2-1.3); Blood Urea Nitrogen 15 mg/dL (9-20); Calcium 9.4 mg/dL (8.4-10.2); Carbon Dioxide 24 mmol/L (22-30); Chloride 101 mmol/L (98-107); Estimated Glomerular Filt Rate 56; Glucose 241 mg/dL (65-110); Potassium 3.9 mmol/L (3.4-5.0); Sodium 136 mmol/L (137-145); Total Protein 7.7 g/dL (6.3-8.2)
[2024-12-31 18:27] LABS: Hemoglobin A1C 7.5 % (<5.7)
== END 2024-12-31 16:14 | disposition home or self-care (01) ==
LOC: ANHLAB 16:15
PROVIDERS: PCP Family Medicine; Referring Provider Family Medicine; Visit Provider Physician Assistant Medical
DX: M25.532 Pain in left wrist (principal); E11.9 Type 2 diabetes mellitus without complications
CPT/HCPCS: 36415; 73110; 80053; 83036